=== PATIENT | male | born 1975 | race Caucasian/White ===

== ENCOUNTER 2018-04-15 13:06 | Emergency (ER) | payer OTHER ==
[2018-04-15] MEDS ORDERED: TORAdol 30 mg Injection IM ONE (13:40)
[2018-04-15] MEDS ORDERED: DECADRON 10MG INJ. IM ONE (13:40)
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
[2018-04-15] MEDS ORDERED: DECADRON 10MG INJ. ONE (13:56)
[2018-04-15] MEDS ORDERED: TORAdol 30 mg Injection ONE (13:56)
--- NOTE | 2018-04-15 14:15 | XRAY ---
Indication: Pain following 3 feet fall. Comparison: None AP pelvis and 2 views of the right hip demonstrates lower lumbar degenerative changes reported separately. No other bony, articular, or soft tissue abnormalities.
--- NOTE | 2018-04-15 14:18 | XRAY ---
Indication: Pain following 3 feet fall. Comparison: None 3 views of the lumbar spine demonstrates 5 lumbar vertebral segments in normal alignment with minimal multilevel endplate spurring, L4-S1 disc space narrowing, and L5-S1 degenerative facet arthropathy right greater than left. No other bony, articular, or soft tissue abnormalities.
[2018-04-15 14:38] VITALS: BP 105/75; PULSE 75; O2SAT 97
== END 2018-04-15 14:56 | disposition home or self-care (01) ==
LOC: ED 13:06
DX: M54.5 Low back pain (principal); M25.551 Pain in right hip; W11.XXXA Fall on and from ladder, initial encounter
CPT/HCPCS: 72100; 73502; 96372; 99284; J1100; J1885

== ENCOUNTER 2019-06-03 13:02 | Emergency (ER) | payer OTHER ==
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
[2019-06-03 13:23] VITALS: BP 109/58; PULSE 72; O2SAT 100
[2019-06-03] MEDS ORDERED: PERCOCET TABLET 5/325MG PO STA (13:47)
[2019-06-03] MEDS ORDERED: PERCOCET TABLET 5/325MG ONE (13:57)
--- NOTE | 2019-06-03 14:13 | XRAY ---
Indication: 4th/5th metacarpal pain and swelling following injury. Comparison: None 3 views of the right hand demonstrates minimally angulated 4th metacarpal head fracture with soft tissue swelling. No other bony, articular, or soft tissue abnormalities.
--- NOTE | 2019-06-03 14:27 | XRAY ---
Indication: Pain following injury. Comparison: None 2 views of the right forearm demonstrates tiny distal radius bone island and 4th metacarpal fracture reported separately. No other bony, articular, or soft tissue abnormalities.
--- NOTE | 2019-06-03 14:42 | XRAY ---
Indication: Pain following injury. Comparison: None 3 views of the right wrist demonstrates tiny distal radius bone island. No other bony, articular, or soft tissue abnormalities.
== END 2019-06-03 14:57 | disposition home or self-care (01) ==
LOC: ED 13:02
DX: S62.304A Unspecified fracture of fourth metacarpal bone, right hand, initial encounter for closed fracture (principal); M79.641 Pain in right hand; W22.09XA Striking against other stationary object, initial encounter; Y93.89 Activity, other specified
CPT/HCPCS: 29126; 73090; 73110; 73130; 99284; A9270-GY

== ENCOUNTER 2021-07-21 23:42 | Emergency (ER) | payer OTHER | END 2021-07-21 23:50 | disposition left against medical advice (07) | LOC: ED 23:42 | DX: Z53.21 Procedure and treatment not carried out due to patient leaving prior to being seen by health care provider (principal) ==

== ENCOUNTER 2022-01-30 12:23 | Emergency (ER) | payer OTHER ==
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
[2022-01-30] MEDS ORDERED: Zofran 4 MG/2 ML VIAL IV ONE (13:03)
[2022-01-30] MEDS ORDERED: MORPHINE SULFATE 4 MG INJ IV ONE (13:03)
[2022-01-30] MEDS ORDERED: MORPHINE SULFATE 4 MG INJ ONE (13:09)
[2022-01-30] MEDS ORDERED: Zofran 4 MG/2 ML VIAL ONE (13:09)
[2022-01-30 13:14] LABS: ALBUMIN 4.7 g/dL (3.5-5.0); ALKALINE PHOSPHATASE 54 U/L (38-126); AMYLASE 43 U/L (30-110); ANION GAP 15.7 MEQ/L (5-15); BLOOD UREA NITROGEN 9 mg/dL (9-20); CHLORIDE 106 mmol/L (98-107); Calcium 9.6 mg/dL (8.4-10.2); Carbon Dioxide 21 mmol/L (22-30); Creatinine 1 0.89 mg/dL (0.66-1.25); EST GLOMERULAR FILTRATION RATE > 60.0 ML/MIN; Glucose 88 mg/dL (74-106); LIPASE 52 U/L (23-300); Potassium 4.4 mmol/L (3.5-5.1); SGOT/AST 30 U/L (17-59); SGPT/ALT 29 U/L (0-50); SODIUM 139 mmol/L (137-145); Total Protein 7.5 g/dL (6.3-8.2)
[2022-01-30 13:28] LABS: Hematocrit 31.5 % (42-50); Hemoglobin 9.1 gm/dl (12.5-18.0); Mean Cell Volume 67.7 fl (78-100); Mean Corpuscular Hemoglobin 19.6 pg (26-32); Mean Corpuscular Hgb Concent. 28.9 g/dl (32-36); Mean Platelet Volume 10.4 fl (7.5-11.0); Platelet Count 211 K/mm3 (150-450); Red Blood Count 4.65 M/mm3 (4.1-5.6); Red Cell Distribution Width 18.9 % (11.5-14.0)
--- NOTE | 2022-01-30 13:39 | XRAY ---
Indication: Abdomen pain and rectal bleeding. Multiple contiguous images obtained through the abdomen and pelvis without contrast Comparison: None Lung bases demonstrates bibasilar dependent atelectasis and small right lower lobe calcified granuloma. Heart not enlarged. Noncontrasted stomach and bowel loops appear nonobstructed with normal air-filled appendix. Minimal distal descending and sigmoid colonic diverticulosis without diverticulitis. No free fluid/air. Remaining liver, gallbladder, pancreas, spleen, adrenal glands, kidneys, ureters, bladder, and aorta appear unremarkable for noncontrast exam. Osseous structures intact with minimal/mild lower lumbar degenerative changes. No ventral or inguinal hernias. Impression: Minimal colonic diverticulosis. Remaining CT abdomen/pelvis without contrast exam is negative.
[2022-01-30 13:52] LABS: Mucus SLIGHT /HPF (NEGATIVE)
[2022-01-30 13:58] LABS: Appearance CLEAR (CLEAR); Specific Gravity >=1.030 (1.005-1.025)
[2022-01-30 13:59] LABS: Bacteria NONE SEEN /HPF (NEGATIVE); Bilirubin SMALL (NEGATIVE); Blood NEGATIVE Ery/ul (0-5); Epithelial Cells OCCASIONAL /HPF (FEW); Glucose NEGATIVE (NEGATIVE); Ketones NEGATIVE (NEGATIVE); Leukocyte Esterase NEGATIVE (NEGATIVE); Nitrite NEGATIVE (NEGATIVE); Ph 6.5 (5-6); Protein,Urine Dip NEGATIVE (Negative); RBC NONE SEEN /HPF (0-2); Urobilinogen 1 mg/dL (0-1)
[2022-01-30 14:00] LABS: ADD URINE CULTURE? NO (NO)
[2022-01-30 14:36] VITALS: BP 116/74; PULSE 64; O2SAT 99
[2022-01-30 19:46] LABS: BAND 2 % (0.0-2.0); Eosinophil 3 % (0.00-3.0); Hypochromia 2+; Lymphocytes 7 % (24-44); Monocyte 6 % (0.0-12.0); Neutrophils 82 % (36.-66.); Platelet Estimate NORMAL (NORMAL); Total Cells Counted 100
[2022-01-30 19:52] LABS: Microcytosis 1+
== END 2022-01-30 15:00 | disposition home or self-care (01) ==
LOC: ED 12:23
DX: K62.5 Hemorrhage of anus and rectum (principal); R10.31 Right lower quadrant pain; R10.32 Left lower quadrant pain; K59.00 Constipation, unspecified; R11.0 Nausea; K57.31 Diverticulosis of large intestine without perforation or abscess with bleeding; Z72.0 Tobacco use
CPT/HCPCS: 36000; 36415; 74176; 80053; 81001; 82150; 83605; 83690; 85025; 96374; 96375; 99284; J2270; J2405

== ENCOUNTER 2023-09-03 15:53 | Observation (INO) | payer SELFPAY ==
[2023-09-03 16:44] LABS: ALBUMIN 3.1 g/dL (3.5-5.0); ANION GAP 11.6 MEQ/L (5-15); BILIRUBIN,TOTAL 0.2 mg/dL (0.2-1.3); Calcium 8.4 mg/dL (8.4-10.2); Creatinine 1 0.69 mg/dL (0.66-1.25); EST GLOMERULAR FILTRATION RATE 113.5 ML/MIN; Potassium 3.5 mmol/L (3.5-5.1); Total Protein 5.5 g/dL (6.3-8.2)
[2023-09-03 16:46] LABS: Absolute Neutrophil Ct (ANC) 4.11 x10^3/uL (1.4-6.9); BASOPHIL % 0.7 % (0.0-0.4); Basophil (Absolute #) 0.05 x10^3/uL (0-0.4); Eosinophil % 4.6 % (0.00-5.0); Eosinophil (Absolute #) 0.31 x10^3/uL (0-0.5); Hematocrit 21.2 % (42-50); IMMATURE GRAN # 0.02 x10^3u/L (0.00-0.03); IMMATURE GRAN % 0.3 % (0.00-0.4); Lymphocyte (Absolute #) 1.44 x10^3/uL (1.0-4.6); Lymphocytes % 21.5 % (24.0-44.0); Mean Cell Volume 75.4 fL (78-100); Mean Corpuscular Hemoglobin 22.1 pg (26-32); Mean Corpuscular Hgb Concent. 29.2 g/dL (32-36); Mean Platelet Volume 9.9 fL (7.5-11.0); Monocyte (Absolute #) 0.78 x10^3/uL (0.0-1.3); Monocytes % 11.6 % (0.0-12.0); Neutrophil % 61.3 % (36.0-66.0); Platelet Count 271 x10^3/uL (150-450); Red Blood Count 2.81 x10^6/uL (4.1-5.6); Red Cell Distribution Width 20.5 % (11.5-14.0); White Blood Count 6.7 x10^3/uL (4.0-10.5)
[2023-09-03 16:55] LABS: Hemoglobin 6.2 g/dL (12.5-18.0)
[2023-09-03 18:08] LABS: ABO TYPING A; Antibody Screen NEGATIVE (NEGATIVE); RH TYPING NEGATIVE
[2023-09-03 19:09] LABS: INFLUENZA A NEGATIVE (NEGATIVE); INFLUENZA B NEGATIVE (NEGATIVE); RESPIRATORY SYNCTIAL VIRUS NEGATIVE (NEGATIVE); SARS-CoV-2 Xpert Express NEGATIVE (NEGATIVE)
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
[2023-09-03 20:20] LABS: CROSS MATCH (PRBC) COMPATIBLE (COMPATIBLE)
[2023-09-03 20:21] LABS: CROSS MATCH (PRBC) COMPATIBLE (COMPATIBLE)
[2023-09-03] MEDS ORDERED: Sodium Chloride 0.9% 500 ML 500 ML IV SCH (20:30)
[2023-09-03 22:47] VITALS: O2SAT 98
[2023-09-03] MEDS ORDERED: Sodium Chloride 0.9% 1000 ML 1,000 ML ONE (23:43)
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
[2023-09-04] MEDS ORDERED: Zofran 4 MG/2 ML VIAL IV PRN (00:40)
[2023-09-04 05:12] VITALS: BP 96/57; PULSE 56; RESP 17; TEMP 96.9
[2023-09-04 05:51] LABS: Hematocrit 26.3 % (42-50); Hemoglobin 7.9 g/dL (12.5-18.0); Mean Corpuscular Hemoglobin 22.8 pg (26-32); Mean Platelet Volume 10.2 fL (7.5-11.0); Platelet Count 268 x10^3/uL (150-450); Red Blood Count 3.46 x10^6/uL (4.1-5.6); Red Cell Distribution Width 19.6 % (11.5-14.0); White Blood Count 7.9 x10^3/uL (4.0-10.5)
[2023-09-04 06:10] LABS: ALBUMIN 3.1 g/dL (3.5-5.0); ANION GAP 11.1 MEQ/L (5-15); BILIRUBIN,TOTAL 0.5 mg/dL (0.2-1.3); Calcium 8.4 mg/dL (8.4-10.2); Creatinine 1 0.69 mg/dL (0.66-1.25); EST GLOMERULAR FILTRATION RATE 113.5 ML/MIN; Potassium 4.1 mmol/L (3.5-5.1); Total Protein 5.6 g/dL (6.3-8.2)
--- NOTE | 2023-09-04 13:13 | PCM.DS ---
Discharge Summary Date of Admission: 09/03/23 22:57 Date of Discharge: 09/04/23 Admitting Physician: JENELLE RODRIGUEZ MD Primary Care Provider: JUDITH WELLS Allergies Allergies diphenhydramine [From Benadryl] Allergy (Verified 09/03/23 16:02) Hospital Summary - Hospital Course Hospital Course: 09/03/23 Mr. Rivas is a 48 year old male with a past medical history significant for hypertension, hyperlipidemia, and previous episodes of anemia and abdominal pain status post work up in the past including two indeterminate colonoscopies. He reports that he ate the wrong thing and then suddenly developed BRBPR that could not be controlled, leading to severe weakness. He has lost approximately 100lbs over the past couple years. He denies any chest pain or shortness of breath. He denies any nausea, vomiting or diarrhea. He was found to have a hemoglobin of 6.2 so he was recommended for admission. 09/04/23 Pt left last night AMA. Pt was not seen by this provider. - Vitals & Intake/Output Vital Signs: Vital Signs Temperature 96.9 F 09/04/23 04:00 Pulse Rate 56 L 09/04/23 04:00 Respiratory Rate 17 09/04/23 04:00 Blood Pressure 96/57 09/04/23 04:00 O2 Sat by Pulse Oximetry 98 09/04/23 04:00 Intake & Output: Intake & Output 09/02/23 09/03/23 09/04/23 09/05/23 11:59 11:59 11:59 11:59 Intake Total 300 Balance 300 Weight 68.2 kg - Lab Result Diagrams: 09/04/23 05:04 09/04/23 05:04 Lab Results-Last 24 Hrs: Lab Results-Last 24 Hours 09/03/23 09/03/23 09/03/23 Range/Units 16:15 16:15 16:15 WBC 6.7 (4.0-10.5) x10^3/uL RBC 2.81 L (4.1-5.6) x10^6/uL Hgb 6.2 L* (12.5-18.0) g/dL Hct 21.2 L (42-50) % MCV 75.4 L (78-100) fL MCH 22.1 L (26-32) pg MCHC 29.2 L (32-36) g/dL RDW 20.5 H (11.5-14.0) % Plt Count 271 (150-450) x10^3/uL MPV 9.9 (7.5-11.0) fL Gran % 61.3 (36.0-66.0) % Immature Gran % (Auto) 0.3 (0.00-0.4) % Nucleat RBC Rel Count 0.0 (0.00-0.1) % Eos # (Auto) 0.31 (0-0.5) x10^3/uL Immature Gran # (Auto) 0.02 (0.00-0.03) x10^3u/L Absolute Lymphs (auto) 1.44 (1.0-4.6) x10^3/uL Absolute Monos (auto) 0.78 (0.0-1.3) x10^3/uL Absolute Nucleated RBC 0.00 (0.00-0.01) x10^3u/L Lymphocytes % 21.5 L (24.0-44.0) % Monocytes % 11.6 (0.0-12.0) % Eosinophils % 4.6 (0.00-5.0) % Basophils % 0.7 (0.0-0.4) % Absolute Granulocytes 4.11 (1.4-6.9) x10^3/uL Basophils # 0.05 (0-0.4) x10^3/uL Sodium 140 (137-145) mmol/L Potassium 3.5 (3.5-5.1) mmol/L Chloride 108 H (98-107) mmol/L Carbon Dioxide 24 (22-30) mmol/L Anion Gap 11.6 (5-15) MEQ/L BUN 10 (9-20) mg/dL Creatinine 0.69 (0.66-1.25) mg/dL Estimated GFR 113.5 ML/MIN Glucose 69 L (74-106) mg/dL POC Glucometer (74 to 106) mg/dL Calcium 8.4 (8.4-10.2) mg/dL Total Bilirubin 0.20 (0.2-1.3) mg/dL AST 20 (17-59) U/L ALT 24 (0-50) U/L Alkaline Phosphatase 48 (38-126) U/L Troponin I < 0.012 (0.000-0.034) ng/mL Serum Total Protein 5.5 L (6.3-8.2) g/dL Albumin 3.1 L (3.5-5.0) g/dL Influenza Type A Ag (NEGATIVE) Influenza Type B Ag (NEGATIVE) RSV (PCR) (NEGATIVE) SARS-CoV-2 (PCR) (NEGATIVE) ABO Group Rh Factor Antibody Screen (NEGATIVE) Crossmatch (COMPATIBLE) 09/03/23 09/03/23 09/03/23 Range/Units 17:10 18:20 20:14 WBC (4.0-10.5) x10^3/uL RBC (4.1-5.6) x10^6/uL Hgb (12.5-18.0) g/dL Hct (42-50) % MCV (78-100) fL MCH (26-32) pg MCHC (32-36) g/dL RDW (11.5-14.0) % Plt Count (150-450) x10^3/uL MPV (7.5-11.0) fL Gran % (36.0-66.0) % Immature Gran % (Auto) (0.00-0.4) % Nucleat RBC Rel Count (0.00-0.1) % Eos # (Auto) (0-0.5) x10^3/uL Immature Gran # (Auto) (0.00-0.03) x10^3u/L Absolute Lymphs (auto) (1.0-4.6) x10^3/uL Absolute Monos (auto) (0.0-1.3) x10^3/uL Absolute Nucleated RBC (0.00-0.01) x10^3u/L Lymphocytes % (24.0-44.0) % Monocytes % (0.0-12.0) % Eosinophils % (0.00-5.0) % Basophils % (0.0-0.4) % Absolute Granulocytes (1.4-6.9) x10^3/uL Basophils # (0-0.4) x10^3/uL Sodium (137-145) mmol/L Potassium (3.5-5.1) mmol/L Chloride (98-107) mmol/L Carbon Dioxide (22-30) mmol/L Anion Gap (5-15) MEQ/L BUN (9-20) mg/dL Creatinine (0.66-1.25) mg/dL Estimated GFR ML/MIN Glucose (74-106) mg/dL POC Glucometer (74 to 106) mg/dL Calcium (8.4-10.2) mg/dL Total Bilirubin (0.2-1.3) mg/dL AST (17-59) U/L ALT (0-50) U/L Alkaline Phosphatase (38-126) U/L Troponin I < 0.012 (0.000-0.034) ng/mL Serum Total Protein (6.3-8.2) g/dL Albumin (3.5-5.0) g/dL Influenza Type A Ag NEGATIVE (NEGATIVE) Influenza Type B Ag NEGATIVE (NEGATIVE) RSV (PCR) NEGATIVE (NEGATIVE) SARS-CoV-2 (PCR) NEGATIVE (NEGATIVE) ABO Group A Rh Factor NEGATIVE Antibody Screen NEGATIVE (NEGATIVE) Crossmatch COMPATIBLE (COMPATIBLE) 09/03/23 09/03/23 09/04/23 Range/Units 23:46 Unknown 05:04 WBC (4.0-10.5) x10^3/uL RBC (4.1-5.6) x10^6/uL Hgb (12.5-18.0) g/dL Hct (42-50) % MCV (78-100) fL MCH (26-32) pg MCHC (32-36) g/dL RDW (11.5-14.0) % Plt Count (150-450) x10^3/uL MPV (7.5-11.0) fL Gran % (36.0-66.0) % Immature Gran % (Auto) (0.00-0.4) % Nucleat RBC Rel Count (0.00-0.1) % Eos # (Auto) (0-0.5) x10^3/uL Immature Gran # (Auto) (0.00-0.03) x10^3u/L Absolute Lymphs (auto) (1.0-4.6) x10^3/uL Absolute Monos (auto) (0.0-1.3) x10^3/uL Absolute Nucleated RBC (0.00-0.01) x10^3u/L Lymphocytes % (24.0-44.0) % Monocytes % (0.0-12.0) % Eosinophils % (0.00-5.0) % Basophils % (0.0-0.4) % Absolute Granulocytes (1.4-6.9) x10^3/uL Basophils # (0-0.4) x10^3/uL Sodium (137-145) mmol/L Potassium (3.5-5.1) mmol/L Chloride (98-107) mmol/L Carbon Dioxide (22-30) mmol/L Anion Gap (5-15) MEQ/L BUN (9-20) mg/dL Creatinine (0.66-1.25) mg/dL Estimated GFR ML/MIN Glucose (74-106) mg/dL POC Glucometer 126 H (74 to 106) mg/dL Calcium (8.4-10.2) mg/dL Total Bilirubin (0.2-1.3) mg/dL AST (17-59) U/L ALT (0-50) U/L Alkaline Phosphatase (38-126) U/L Troponin I < 0.012 (0.000-0.034) ng/mL Serum Total Protein (6.3-8.2) g/dL Albumin (3.5-5.0) g/dL Influenza Type A Ag (NEGATIVE) Influenza Type B Ag (NEGATIVE) RSV (PCR) (NEGATIVE) SARS-CoV-2 (PCR) (NEGATIVE) ABO Group Rh Factor Antibody Screen (NEGATIVE) Crossmatch COMPATIBLE (COMPATIBLE) 09/04/23 09/04/23 Range/Units 05:04 05:04 WBC 7.9 (4.0-10.5) x10^3/uL RBC 3.46 L (4.1-5.6) x10^6/uL Hgb 7.9 L D (12.5-18.0) g/dL Hct 26.3 L (42-50) % MCV 76.0 L (78-100) fL MCH 22.8 L (26-32) pg MCHC 30.0 L (32-36) g/dL RDW 19.6 H (11.5-14.0) % Plt Count 268 (150-450) x10^3/uL MPV 10.2 (7.5-11.0) fL Gran % (36.0-66.0) % Immature Gran % (Auto) (0.00-0.4) % Nucleat RBC Rel Count (0.00-0.1) % Eos # (Auto) (0-0.5) x10^3/uL Immature Gran # (Auto) (0.00-0.03) x10^3u/L Absolute Lymphs (auto) (1.0-4.6) x10^3/uL Absolute Monos (auto) (0.0-1.3) x10^3/uL Absolute Nucleated RBC (0.00-0.01) x10^3u/L Lymphocytes % (24.0-44.0) % Monocytes % (0.0-12.0) % Eosinophils % (0.00-5.0) % Basophils % (0.0-0.4) % Absolute Granulocytes (1.4-6.9) x10^3/uL Basophils # (0-0.4) x10^3/uL Sodium 138 (137-145) mmol/L Potassium 4.1 (3.5-5.1) mmol/L Chloride 108 H (98-107) mmol/L Carbon Dioxide 23 (22-30) mmol/L Anion Gap 11.1 (5-15) MEQ/L BUN 10 (9-20) mg/dL Creatinine 0.69 (0.66-1.25) mg/dL Estimated GFR 113.5 ML/MIN Glucose 97 (74-106) mg/dL POC Glucometer (74 to 106) mg/dL Calcium 8.4 (8.4-10.2) mg/dL Total Bilirubin 0.50 (0.2-1.3) mg/dL AST 22 (17-59) U/L ALT 22 (0-50) U/L Alkaline Phosphatase 48 (38-126) U/L Troponin I (0.000-0.034) ng/mL Serum Total Protein 5.6 L (6.3-8.2) g/dL Albumin 3.1 L (3.5-5.0) g/dL Influenza Type A Ag (NEGATIVE) Influenza Type B Ag (NEGATIVE) RSV (PCR) (NEGATIVE) SARS-CoV-2 (PCR) (NEGATIVE) ABO Group Rh Factor Antibody Screen (NEGATIVE) Crossmatch (COMPATIBLE) Final Diagnosis/Problem List - Final Discharge Diagnosis/Problem (1) Symptomatic anemia Status: Acute Assessment & Plan: 1. Anemia likely from GI bleed though he has had two colonoscopies in the past that were indeterminate - suspect he has underlying malignancy given significant weight loss associated with GI bleed Will transfuse 2 units pRBC Trend H/H Defer blood thinners Likely needs surgery or GI eval Ambulation for DVT prophylaxis Code(s): D64.9 - ANEMIA, UNSPECIFIED (2) Nicotine dependence Status: Acute Assessment & Plan: - according to staff pt left as he was not able to go out to smoke last night. Code(s): F17.200 - NICOTINE DEPENDENCE, UNSPECIFIED, UNCOMPLICATED - Discharge Discharge Date: 09/04/23 Condition: Fair Prescriptions: Continue Ferrous Sulfate 325 mg [Feosol 325 mg] 1 tab PO DAILY Follow up with: ARVIND DE LEON FNP [Primary Care Provider] -
== END 2023-09-04 07:05 | disposition left against medical advice (07) ==
LOC: ED 15:53 → MED SURG 22:57
PROVIDERS: ADMIT Internal Medicine Nephrology; ATTEND Internal Medicine Nephrology
DX: D64.9 Anemia, unspecified (principal); I10 Essential (primary) hypertension; E78.5 Hyperlipidemia, unspecified; F17.200 Nicotine dependence, unspecified, uncomplicated; R07.9 Chest pain, unspecified; Z79.899 Other long term (current) drug therapy; Z20.828 Contact with and (suspected) exposure to other viral communicable diseases
CPT/HCPCS: 0241U; 36415; 36430; 80053; 82378; 82947; 84484; 85025; 85027; 86850; 86900; 86901; 86922; 93005; 93041; 94760; 99285; P9016; 93268; G0378

== ENCOUNTER 2023-10-02 00:02 | Emergency (ER) | payer OTHER ==
[2023-10-02 00:35] VITALS: RESP 18; TEMP 98; O2SAT 99
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
[2023-10-02 01:30] VITALS: BP 124/81; PULSE 66
== END 2023-10-02 01:44 | disposition home or self-care (01) ==
LOC: ED 00:02
DX: G24.9 Dystonia, unspecified (principal); Z63.0 Problems in relationship with spouse or partner; Z79.899 Other long term (current) drug therapy; Z28.310 Unvaccinated for COVID-19; Z72.0 Tobacco use
CPT/HCPCS: 99281

== ENCOUNTER 2023-11-13 23:06 | Observation (INO) | payer OTHER ==
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
[2023-11-13 23:38] LABS: Absolute Neutrophil Ct (ANC) 4.59 x10^3/uL (1.4-6.9); BASOPHIL % 0.8 % (0.0-0.4); Basophil (Absolute #) 0.05 x10^3/uL (0-0.4); Eosinophil % 1.1 % (0.00-5.0); Eosinophil (Absolute #) 0.07 x10^3/uL (0-0.5); Hematocrit 19.6 % (42-50); IMMATURE GRAN # 0.03 x10^3u/L (0.00-0.03); IMMATURE GRAN % 0.5 % (0.00-0.4); Lymphocyte (Absolute #) 1.07 x10^3/uL (1.0-4.6); Lymphocytes % 16.4 % (24.0-44.0); Mean Cell Volume 75.4 fL (78-100); Mean Corpuscular Hemoglobin 22.3 pg (26-32); Mean Corpuscular Hgb Concent. 29.6 g/dL (32-36); Mean Platelet Volume 9.1 fL (7.5-11.0); Monocytes % 10.8 % (0.0-12.0); Neutrophil % 70.4 % (36.0-66.0); Platelet Count 286 x10^3/uL (150-450); Red Cell Distribution Width 20.3 % (11.5-14.0); White Blood Count 6.5 x10^3/uL (4.0-10.5)
[2023-11-13 23:54] LABS: ALBUMIN 3.4 g/dL (3.5-5.0); ANION GAP 9.7 MEQ/L (5-15); BILIRUBIN,TOTAL 0.3 mg/dL (0.2-1.3); Calcium 8.7 mg/dL (8.4-10.2); Creatinine 1 0.95 mg/dL (0.66-1.25); EST GLOMERULAR FILTRATION RATE 98.1 ML/MIN; Potassium 3.5 mmol/L (3.5-5.1); Total Protein 5.8 g/dL (6.3-8.2)
[2023-11-13 23:56] LABS: Hemoglobin 5.8 g/dL (12.5-18.0)
[2023-11-14 00:15] LABS: Amphetamine,Urine NEGATIVE (NEGATIVE); Barbiturate,Urine NEGATIVE (NEGATIVE); Benzodiazepine,Urine NEGATIVE (NEGATIVE); Cocaine,Urine NEGATIVE (NEGATIVE); Methadone,Urine NEGATIVE (NEGATIVE); Opiate,Urine NEGATIVE (NEGATIVE); PCP,Urine NEGATIVE (NEGATIVE); THC,Urine POSITIVE (NEGATIVE)
[2023-11-14 00:31] LABS: INR 1.15 (0.8-3.0); PROTIME 12.4 SECONDS (9.4-12.5); PTT 21.7 SECONDS (25.1-36.5)
--- NOTE | 2023-11-14 00:57 | XRAY ---
CLINICAL HISTORY:GI Bleed COMPARISON:None. TECHNIQUE:Multiple axial sections of the abdomen and pelvis were acquired without intravenous contrast administration. Sagittal and coronal reformatted images were obtained. FINDINGS: Please note, lack of contrast limits the evaluation of organs, vascular structures, and lymph nodes. A 4 mm calcified nodule is seen in the right lower lobe. Otherwise, both lung bases are clear. Mildly enlarged liver showing increased attenuation suggestive of fatty infiltration. No focal mass is seen. No intrahepatic duct dilatation is noted. The gallbladder is optimally distended. No radiodense calculus. The unenhanced pancreas, spleen and both adrenal glands are normal. A tiny 2 mm calcific focus is seen in the spleen. Both kidneys are normal in size, location and axis. No hydronephrosis, cyst or calculus is noted. Urinary bladder is suboptimally distended and appears within normal limits. The prostate gland appears unremarkable. The stomach and distal esophagus appeared unremarkable. Small bowel loops are within normal limits. No acute bowel obstruction or ileus. Moderate colonic stool volume. Appendix is normal. No abnormal hypodensity is noted to suggest acute hemorrhage. No free fluid or free intraperitoneal air is seen. Multiple nonspecific subcentimeter mesenteric lymph nodes. No evidence of pathological enlargement. Multilevel moderate lumbar spondylosis. Bifid spine is noted at L5. Grade 1 retrolisthesis is seen at L4-L5 and L5-S1. There is anterior angulation of the tip of the coccyx, normal variant. IMPRESSION: No acute abdominopelvic abnormality with limitations of non-contrast CT study. Hepatic steatosis. A 4 mm right lower lobe calcified nodule. Moderate degenerative changes with retrolisthesis at L4-L5 and L5-S1. Electronically Signed by: Pat Mckeon MD. (11/14/2023 00:52:40 EST)
[2023-11-14 01:16] LABS: Iron 13 ug/dL (49-181); Iron Saturation 3 % (20-39); TIBC 412 ug/dL (261-497)
[2023-11-14 01:23] LABS: Appearance Clear (Clear); Bacteria None Seen /HPF (None Seen); Bilirubin Moderate (Negative); Blood Negative (Negative); Epithelial Cells None Seen /HPF (None Seen); Glucose, Urine Negative (Negative); Ketones Trace (Negative); Leukocyte Esterase Negative (Negative); Nitrite Negative (Negative); Ph 5.5 (4.6-8.0); Protein,Urine Dip Trace (Negative); RBC 0-2 /HPF (0-5); WBC 0-2 /HPF (0-5)
[2023-11-14] MEDS: Sodium Chloride 0.9% 1000 ML 1,000 ML IV SCH ×2 (01:36→05:28)
[2023-11-14 01:37] LABS: ADD URINE CULTURE? NO (NO)
[2023-11-14 01:37] LABS: INFLUENZA A NEGATIVE (NEGATIVE); INFLUENZA B NEGATIVE (NEGATIVE); RESPIRATORY SYNCTIAL VIRUS NEGATIVE (NEGATIVE); SARS-CoV-2 Xpert Express NEGATIVE (NEGATIVE)
[2023-11-14 01:58] LABS: Ferritin 5.25 ng/mL (17.9-464)
[2023-11-14 02:11] LABS: CROSS MATCH (PRBC) COMPATIBLE (COMPATIBLE)
[2023-11-14 02:36] LABS: ABO TYPING A; Antibody Screen NEGATIVE (NEGATIVE); RH TYPING NEGATIVE
[2023-11-14] MEDS ORDERED: FEVERALL 650 MG PR PRN (02:38)
[2023-11-14] MEDS ORDERED: Zofran 4 MG/2 ML VIAL IV PRN (02:38)
[2023-11-14] MEDS ORDERED: Zanaflex 4 MG PO PRN (02:47)
[2023-11-14] MEDS ORDERED: Nicoderm CQ 21 MG TOP SCH ×2 (03:00→22:00)
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
[2023-11-14 03:13] LABS: Folate (Folic Acid) 18.7 ng/mL (2.76 - >20)
[2023-11-14] MEDS ORDERED: TYLENOL 325 MG ONE (05:01)
[2023-11-14 06:49] VITALS: BP 103/51; PULSE 80; RESP 20; TEMP 98.9; O2SAT 99
[2023-11-14] MEDS ORDERED: MEDICATION INTERVENTION MC SCH (07:15)
[2023-11-14 09:18] LABS: Hematocrit 25.8 % (42-50); Mean Cell Volume 77.9 fL (78-100); Mean Corpuscular Hemoglobin 24.2 pg (26-32); Mean Platelet Volume 9.7 fL (7.5-11.0); Platelet Count 262 x10^3/uL (150-450); Red Blood Count 3.31 x10^6/uL (4.1-5.6); Red Cell Distribution Width 20.2 % (11.5-14.0); White Blood Count 6.4 x10^3/uL (4.0-10.5)
[2023-11-14 09:32] LABS: ALBUMIN 3.2 g/dL (3.5-5.0); ANION GAP 6.9 MEQ/L (5-15); BILIRUBIN,TOTAL 0.4 mg/dL (0.2-1.3); Calcium 8.2 mg/dL (8.4-10.2); Creatinine 1 0.83 mg/dL (0.66-1.25); EST GLOMERULAR FILTRATION RATE 107.3 ML/MIN; Potassium 3.8 mmol/L (3.5-5.1); Total Protein 5.5 g/dL (6.3-8.2)
[2023-11-14] MEDS ORDERED: Pepcid 20 MG PO SCH (10:00)
[2023-11-14] MEDS ORDERED: FERROUS BIS GLYCINATE CHELATE PO SCH (10:00)
--- NOTE | 2023-11-14 11:16 | PCM.DS ---
Discharge Summary Date of Admission: 11/14/23 01:48 Date of Discharge: 11/14/23 Admitting Physician: SANDRA LANDIN MD Consults: Consults on Case 11/14/23 02:42 Case Management SDOH DC Needs Assessment ROUTINE Primary Care Provider: NO FAMILY DOCTOR Allergies Allergies diphenhydramine [From Benadryl] Allergy (Severe, Verified 11/13/23 23:23) seizure Hospital Summary - Hospital Course Hospital Course: is a 48 year old male who was brought in under police custody for medical clearance but was noted to have significant recurrent anemia due rectal bleeding because of his known diagnosis of ulcerative colitis. The patient does not currently follow with a gastrenterologist and had been referred for a colonoscopy several months ago but was not able to complete this due to can cellation by the gastroenterology team, inability to reschedule, and difficulty with transportation coordination. The patient has recurrent episodes of significant rectal bleeding lasting days, and this has been the case for the past week. He has previously required transfusion (last was a few months ago). He denies any hematemesis. Transfusions were completed and hgb is now stable at 8.0. He feels much better and owuld like to f/u Op with GI. He would like to go to [place]. Will also make pt an appointment for f/u with PCP. Pt explained he would also like some medication for lesion on left lower circular region on chin and dry skin around mouth. He has been using OTC meds without relief for over 1 month. He reports the chin lesion is most likely from his cat. - Vitals & Intake/Output Vital Signs: Vital Signs Temperature 98.9 F 11/14/23 06:25 Pulse Rate 80 11/14/23 06:25 Respiratory Rate 20 11/14/23 06:25 Blood Pressure 103/51 11/14/23 06:25 O2 Sat by Pulse Oximetry 99 11/14/23 06:25 Intake & Output: Intake & Output 11/11/23 11/12/23 11/13/23 11/14/23 11:59 11:59 11:59 11:59 Intake Total 1893 Output Total 450 Balance 1443 Weight 63.3 kg - Lab Result Diagrams: 11/14/23 09:12 11/14/23 09:12 Lab Results-Last 24 Hrs: Lab Results-Last 24 Hours 11/13/23 11/13/23 11/13/23 Range/Units 00:35 00:35 23:30 WBC 6.5 (4.0-10.5) x10^3/uL RBC 2.60 L (4.1-5.6) x10^6/uL Hgb 5.8 L* (12.5-18.0) g/dL Hct 19.6 L (42-50) % MCV 75.4 L (78-100) fL MCH 22.3 L (26-32) pg MCHC 29.6 L (32-36) g/dL RDW 20.3 H (11.5-14.0) % Plt Count 286 (150-450) x10^3/uL MPV 9.1 (7.5-11.0) fL Gran % 70.4 H (36.0-66.0) % Immature Gran % (Auto) 0.5 H (0.00-0.4) % Nucleat RBC Rel Count 0.0 (0.00-0.1) % Eos # (Auto) 0.07 (0-0.5) x10^3/uL Immature Gran # (Auto) 0.03 (0.00-0.03) x10^3u/L Absolute Lymphs (auto) 1.07 (1.0-4.6) x10^3/uL Absolute Monos (auto) 0.70 (0.0-1.3) x10^3/uL Absolute Nucleated RBC 0.00 (0.00-0.01) x10^3u/L Lymphocytes % 16.4 L (24.0-44.0) % Monocytes % 10.8 (0.0-12.0) % Eosinophils % 1.1 (0.00-5.0) % Basophils % 0.8 (0.0-0.4) % Absolute Granulocytes 4.59 (1.4-6.9) x10^3/uL Basophils # 0.05 (0-0.4) x10^3/uL PT (9.4-12.5) SECONDS INR (0.8-3.0) APTT (25.1-36.5) SECONDS Sodium (137-145) mmol/L Potassium (3.5-5.1) mmol/L Chloride (98-107) mmol/L Carbon Dioxide (22-30) mmol/L Anion Gap (5-15) MEQ/L BUN (9-20) mg/dL Creatinine (0.66-1.25) mg/dL Estimated GFR ML/MIN Glucose (74-106) mg/dL Calcium (8.4-10.2) mg/dL Iron (49-181) ug/dL TIBC (261-497) ug/dL Iron Saturation (20-39) % Ferritin (17.9-464) ng/mL Total Bilirubin (0.2-1.3) mg/dL AST (17-59) U/L ALT (0-50) U/L Alkaline Phosphatase (38-126) U/L Serum Total Protein (6.3-8.2) g/dL Albumin (3.5-5.0) g/dL Amylase (30-110) U/L Lipase (23-300) U/L Vitamin B12 (239-931) pg/mL Folic Acid (2.76 - >20) ng/mL Urine Color (Yellow) Urine Appearance (Clear) Urine pH (4.6-8.0) Ur Specific [place] (1.005-1.030) Urine Protein (Negative) Urine Glucose (UA) (Negative) mg/dL Urine Ketones (Negative) Urine Blood (Negative) Urine Nitrite (Negative) Urine Bilirubin (Negative) Urine Urobilinogen (0.2) mg/dL Ur Leukocyte Esterase (Negative) U Hyaline Cast (Auto) (0-2) /LPF Urine Microscopic RBC (0-5) /HPF Urine Microscopic WBC (0-5) /HPF Ur Epithelial Cells (None Seen) /HPF Urine Bacteria (None Seen) /HPF Urine Culture Reflexed (NO) Urine Opiates Level (NEGATIVE) Ur Methadone (NEGATIVE) Urine Barbiturates (NEGATIVE) Ur Phencyclidine (PCP) (NEGATIVE) Urine Amphetamine (NEGATIVE) U Benzodiazepine Level (NEGATIVE) Urine Cocaine (NEGATIVE) Urine Marijuana (THC) (NEGATIVE) Influenza Type A Ag (NEGATIVE) Influenza Type B Ag (NEGATIVE) RSV (PCR) (NEGATIVE) SARS-CoV-2 (PCR) (NEGATIVE) ABO Group A Rh Factor NEGATIVE Antibody Screen NEGATIVE (NEGATIVE) Crossmatch COMPATIBLE (COMPATIBLE) 11/13/23 11/13/23 11/13/23 Range/Units 23:30 23:36 23:45 WBC (4.0-10.5) x10^3/uL RBC (4.1-5.6) x10^6/uL Hgb (12.5-18.0) g/dL Hct (42-50) % MCV (78-100) fL MCH (26-32) pg MCHC (32-36) g/dL RDW (11.5-14.0) % Plt Count (150-450) x10^3/uL MPV (7.5-11.0) fL Gran % (36.0-66.0) % Immature Gran % (Auto) (0.00-0.4) % Nucleat RBC Rel Count (0.00-0.1) % Eos # (Auto) (0-0.5) x10^3/uL Immature Gran # (Auto) (0.00-0.03) x10^3u/L Absolute Lymphs (auto) (1.0-4.6) x10^3/uL Absolute Monos (auto) (0.0-1.3) x10^3/uL Absolute Nucleated RBC (0.00-0.01) x10^3u/L Lymphocytes % (24.0-44.0) % Monocytes % (0.0-12.0) % Eosinophils % (0.00-5.0) % Basophils % (0.0-0.4) % Absolute Granulocytes (1.4-6.9) x10^3/uL Basophils # (0-0.4) x10^3/uL PT 12.4 (9.4-12.5) SECONDS INR 1.15 (0.8-3.0) APTT 21.7 L (25.1-36.5) SECONDS Sodium 134 L (137-145) mmol/L Potassium 3.5 (3.5-5.1) mmol/L Chloride 107 (98-107) mmol/L Carbon Dioxide 21 L (22-30) mmol/L Anion Gap 9.7 (5-15) MEQ/L BUN 11 (9-20) mg/dL Creatinine 0.95 (0.66-1.25) mg/dL Estimated GFR 98.1 ML/MIN Glucose 120 H (74-106) mg/dL Calcium 8.7 (8.4-10.2) mg/dL Iron (49-181) ug/dL TIBC (261-497) ug/dL Iron Saturation (20-39) % Ferritin (17.9-464) ng/mL Total Bilirubin 0.30 (0.2-1.3) mg/dL AST 22 (17-59) U/L ALT 21 (0-50) U/L Alkaline Phosphatase 47 (38-126) U/L Serum Total Protein 5.8 L (6.3-8.2) g/dL Albumin 3.4 L (3.5-5.0) g/dL Amylase 38 (30-110) U/L Lipase 53 (23-300) U/L Vitamin B12 (239-931) pg/mL Folic Acid (2.76 - >20) ng/mL Urine Color Dark Yellow (Yellow) Urine Appearance Clear (Clear) Urine pH 5.5 (4.6-8.0) Ur Specific [place] 1.020 (1.005-1.030) Urine Protein Trace A (Negative) Urine Glucose (UA) Negative (Negative) mg/dL Urine Ketones Trace A (Negative) Urine Blood Negative (Negative) Urine Nitrite Negative (Negative) Urine Bilirubin Moderate A (Negative) Urine Urobilinogen 1.0 A (0.2) mg/dL Ur Leukocyte Esterase Negative (Negative) U Hyaline Cast (Auto) 3-5 A (0-2) /LPF Urine Microscopic RBC 0-2 (0-5) /HPF Urine Microscopic WBC 0-2 (0-5) /HPF Ur Epithelial Cells None Seen (None Seen) /HPF Urine Bacteria None Seen (None Seen) /HPF Urine Culture Reflexed NO (NO) Urine Opiates Level (NEGATIVE) Ur Methadone (NEGATIVE) Urine Barbiturates (NEGATIVE) Ur Phencyclidine (PCP) (NEGATIVE) Urine Amphetamine (NEGATIVE) U Benzodiazepine Level (NEGATIVE) Urine Cocaine (NEGATIVE) Urine Marijuana (THC) (NEGATIVE) Influenza Type A Ag (NEGATIVE) Influenza Type B Ag (NEGATIVE) RSV (PCR) (NEGATIVE) SARS-CoV-2 (PCR) (NEGATIVE) ABO Group Rh Factor Antibody Screen (NEGATIVE) Crossmatch (COMPATIBLE) 11/13/23 11/14/23 11/14/23 Range/Units 23:45 00:35 00:35 WBC (4.0-10.5) x10^3/uL RBC (4.1-5.6) x10^6/uL Hgb (12.5-18.0) g/dL Hct (42-50) % MCV (78-100) fL MCH (26-32) pg MCHC (32-36) g/dL RDW (11.5-14.0) % Plt Count (150-450) x10^3/uL MPV (7.5-11.0) fL Gran % (36.0-66.0) % Immature Gran % (Auto) (0.00-0.4) % Nucleat RBC Rel Count (0.00-0.1) % Eos # (Auto) (0-0.5) x10^3/uL Immature Gran # (Auto) (0.00-0.03) x10^3u/L Absolute Lymphs (auto) (1.0-4.6) x10^3/uL Absolute Monos (auto) (0.0-1.3) x10^3/uL Absolute Nucleated RBC (0.00-0.01) x10^3u/L Lymphocytes % (24.0-44.0) % Monocytes % (0.0-12.0) % Eosinophils % (0.00-5.0) % Basophils % (0.0-0.4) % Absolute Granulocytes (1.4-6.9) x10^3/uL Basophils # (0-0.4) x10^3/uL PT (9.4-12.5) SECONDS INR (0.8-3.0) APTT (25.1-36.5) SECONDS Sodium (137-145) mmol/L Potassium (3.5-5.1) mmol/L Chloride (98-107) mmol/L Carbon Dioxide (22-30) mmol/L Anion Gap (5-15) MEQ/L BUN (9-20) mg/dL Creatinine (0.66-1.25) mg/dL Estimated GFR ML/MIN Glucose (74-106) mg/dL Calcium (8.4-10.2) mg/dL Iron (49-181) ug/dL TIBC (261-497) ug/dL Iron Saturation (20-39) % Ferritin 5.25 L (17.9-464) ng/mL Total Bilirubin (0.2-1.3) mg/dL AST (17-59) U/L ALT (0-50) U/L Alkaline Phosphatase (38-126) U/L Serum Total Protein (6.3-8.2) g/dL Albumin (3.5-5.0) g/dL Amylase (30-110) U/L Lipase (23-300) U/L Vitamin B12 578 (239-931) pg/mL Folic Acid 18.7 (2.76 - >20) ng/mL Urine Color (Yellow) Urine Appearance (Clear) Urine pH (4.6-8.0) Ur Specific [place] (1.005-1.030) Urine Protein (Negative) Urine Glucose (UA) (Negative) mg/dL Urine Ketones (Negative) Urine Blood (Negative) Urine Nitrite (Negative) Urine Bilirubin (Negative) Urine Urobilinogen (0.2) mg/dL Ur Leukocyte Esterase (Negative) U Hyaline Cast (Auto) (0-2) /LPF Urine Microscopic RBC (0-5) /HPF Urine Microscopic WBC (0-5) /HPF Ur Epithelial Cells (None Seen) /HPF Urine Bacteria (None Seen) /HPF Urine Culture Reflexed (NO) Urine Opiates Level NEGATIVE (NEGATIVE) Ur Methadone NEGATIVE (NEGATIVE) Urine Barbiturates NEGATIVE (NEGATIVE) Ur Phencyclidine (PCP) NEGATIVE (NEGATIVE) Urine Amphetamine NEGATIVE (NEGATIVE) U Benzodiazepine Level NEGATIVE (NEGATIVE) Urine Cocaine NEGATIVE (NEGATIVE) Urine Marijuana (THC) POSITIVE A (NEGATIVE) Influenza Type A Ag NEGATIVE (NEGATIVE) Influenza Type B Ag NEGATIVE (NEGATIVE) RSV (PCR) NEGATIVE (NEGATIVE) SARS-CoV-2 (PCR) NEGATIVE (NEGATIVE) ABO Group Rh Factor Antibody Screen (NEGATIVE) Crossmatch (COMPATIBLE) 11/14/23 11/14/23 11/14/23 Range/Units 00:35 00:35 09:12 WBC 6.4 (4.0-10.5) x10^3/uL RBC 3.31 L (4.1-5.6) x10^6/uL Hgb 8.0 L D (12.5-18.0) g/dL Hct 25.8 L (42-50) % MCV 77.9 L (78-100) fL MCH 24.2 L (26-32) pg MCHC 31.0 L (32-36) g/dL RDW 20.2 H (11.5-14.0) % Plt Count 262 (150-450) x10^3/uL MPV 9.7 (7.5-11.0) fL Gran % (36.0-66.0) % Immature Gran % (Auto) (0.00-0.4) % Nucleat RBC Rel Count (0.00-0.1) % Eos # (Auto) (0-0.5) x10^3/uL Immature Gran # (Auto) (0.00-0.03) x10^3u/L Absolute Lymphs (auto) (1.0-4.6) x10^3/uL Absolute Monos (auto) (0.0-1.3) x10^3/uL Absolute Nucleated RBC (0.00-0.01) x10^3u/L Lymphocytes % (24.0-44.0) % Monocytes % (0.0-12.0) % Eosinophils % (0.00-5.0) % Basophils % (0.0-0.4) % Absolute Granulocytes (1.4-6.9) x10^3/uL Basophils # (0-0.4) x10^3/uL PT (9.4-12.5) SECONDS INR (0.8-3.0) APTT (25.1-36.5) SECONDS Sodium (137-145) mmol/L Potassium (3.5-5.1) mmol/L Chloride (98-107) mmol/L Carbon Dioxide (22-30) mmol/L Anion Gap (5-15) MEQ/L BUN (9-20) mg/dL Creatinine (0.66-1.25) mg/dL Estimated GFR ML/MIN Glucose (74-106) mg/dL Calcium (8.4-10.2) mg/dL Iron 13 L (49-181) ug/dL TIBC 412 (261-497) ug/dL Iron Saturation 3 L (20-39) % Ferritin (17.9-464) ng/mL Total Bilirubin (0.2-1.3) mg/dL AST (17-59) U/L ALT (0-50) U/L Alkaline Phosphatase (38-126) U/L Serum Total Protein (6.3-8.2) g/dL Albumin (3.5-5.0) g/dL Amylase (30-110) U/L Lipase (23-300) U/L Vitamin B12 (239-931) pg/mL Folic Acid (2.76 - >20) ng/mL Urine Color (Yellow) Urine Appearance (Clear) Urine pH (4.6-8.0) Ur Specific [place] (1.005-1.030) Urine Protein (Negative) Urine Glucose (UA) (Negative) mg/dL Urine Ketones (Negative) Urine Blood (Negative) Urine Nitrite (Negative) Urine Bilirubin (Negative) Urine Urobilinogen (0.2) mg/dL Ur Leukocyte Esterase (Negative) U Hyaline Cast (Auto) (0-2) /LPF Urine Microscopic RBC (0-5) /HPF Urine Microscopic WBC (0-5) /HPF Ur Epithelial Cells (None Seen) /HPF Urine Bacteria (None Seen) /HPF Urine Culture Reflexed (NO) Urine Opiates Level (NEGATIVE) Ur Methadone (NEGATIVE) Urine Barbiturates (NEGATIVE) Ur Phencyclidine (PCP) (NEGATIVE) Urine Amphetamine (NEGATIVE) U Benzodiazepine Level (NEGATIVE) Urine Cocaine (NEGATIVE) Urine Marijuana (THC) (NEGATIVE) Influenza Type A Ag (NEGATIVE) Influenza Type B Ag (NEGATIVE) RSV (PCR) (NEGATIVE) SARS-CoV-2 (PCR) (NEGATIVE) ABO Group Rh Factor Antibody Screen (NEGATIVE) Crossmatch COMPATIBLE (COMPATIBLE) 11/14/23 Range/Units 09:12 WBC (4.0-10.5) x10^3/uL RBC (4.1-5.6) x10^6/uL Hgb (12.5-18.0) g/dL Hct (42-50) % MCV (78-100) fL MCH (26-32) pg MCHC (32-36) g/dL RDW (11.5-14.0) % Plt Count (150-450) x10^3/uL MPV (7.5-11.0) fL Gran % (36.0-66.0) % Immature Gran % (Auto) (0.00-0.4) % Nucleat RBC Rel Count (0.00-0.1) % Eos # (Auto) (0-0.5) x10^3/uL Immature Gran # (Auto) (0.00-0.03) x10^3u/L Absolute Lymphs (auto) (1.0-4.6) x10^3/uL Absolute Monos (auto) (0.0-1.3) x10^3/uL Absolute Nucleated RBC (0.00-0.01) x10^3u/L Lymphocytes % (24.0-44.0) % Monocytes % (0.0-12.0) % Eosinophils % (0.00-5.0) % Basophils % (0.0-0.4) % Absolute Granulocytes (1.4-6.9) x10^3/uL Basophils # (0-0.4) x10^3/uL PT (9.4-12.5) SECONDS INR (0.8-3.0) APTT (25.1-36.5) SECONDS Sodium 136 L (137-145) mmol/L Potassium 3.8 (3.5-5.1) mmol/L Chloride 108 H (98-107) mmol/L Carbon Dioxide 25 (22-30) mmol/L Anion Gap 6.9 (5-15) MEQ/L BUN 14 (9-20) mg/dL Creatinine 0.83 (0.66-1.25) mg/dL Estimated GFR 107.3 ML/MIN Glucose 121 H (74-106) mg/dL Calcium 8.2 L (8.4-10.2) mg/dL Iron (49-181) ug/dL TIBC (261-497) ug/dL Iron Saturation (20-39) % Ferritin (17.9-464) ng/mL Total Bilirubin 0.40 (0.2-1.3) mg/dL AST 21 (17-59) U/L ALT 20 (0-50) U/L Alkaline Phosphatase 47 (38-126) U/L Serum Total Protein 5.5 L (6.3-8.2) g/dL Albumin 3.2 L (3.5-5.0) g/dL Amylase (30-110) U/L Lipase (23-300) U/L Vitamin B12 (239-931) pg/mL Folic Acid (2.76 - >20) ng/mL Urine Color (Yellow) Urine Appearance (Clear) Urine pH (4.6-8.0) Ur Specific [place] (1.005-1.030) Urine Protein (Negative) Urine Glucose (UA) (Negative) mg/dL Urine Ketones (Negative) Urine Blood (Negative) Urine Nitrite (Negative) Urine Bilirubin (Negative) Urine Urobilinogen (0.2) mg/dL Ur Leukocyte Esterase (Negative) U Hyaline Cast (Auto) (0-2) /LPF Urine Microscopic RBC (0-5) /HPF Urine Microscopic WBC (0-5) /HPF Ur Epithelial Cells (None Seen) /HPF Urine Bacteria (None Seen) /HPF Urine Culture Reflexed (NO) Urine Opiates Level (NEGATIVE) Ur Methadone (NEGATIVE) Urine Barbiturates (NEGATIVE) Ur Phencyclidine (PCP) (NEGATIVE) Urine Amphetamine (NEGATIVE) U Benzodiazepine Level (NEGATIVE) Urine Cocaine (NEGATIVE) Urine Marijuana (THC) (NEGATIVE) Influenza Type A Ag (NEGATIVE) Influenza Type B Ag (NEGATIVE) RSV (PCR) (NEGATIVE) SARS-CoV-2 (PCR) (NEGATIVE) ABO Group Rh Factor Antibody Screen (NEGATIVE) Crossmatch (COMPATIBLE) - Radiology Exams Ordered Rad Exams-Entire Visit: Radiology Procedures Category Date Time Status ABDOMEN AND PELVIS W/0 CONTRAS [CT] Stat Exams 11/13/23 23:59 Completed - Procedures and Test Procedures and Tests throughout Hospitalization: Therapy Orders & Screens 11/14/23 02:46 Smoking Cessation Education ONCE Comment: Diagnosis: anemia Smoking Status: Current every day smoker How long have you smoked: 30 Have you smoked in the past 12 months: Yes Do you dip or chew tobacco: No Discharge Exam General Appearance: no apparent distress, alert Neurologic Exam: alert, oriented x 3, cooperative, normal mood/affect, nml cerebellar function, sensation nml, No motor deficits Eye Exam: PERRL, EOMI, eyes nml inspection Ears, Nose, Throat Exam: normal ENT inspection, pharynx normal, moist mucous membranes Neck Exam: normal inspection, non-tender, supple, full range of motion Respiratory Exam: normal breath sounds, lungs clear, No respiratory distress Cardiovascular Exam: regular rate/rhythm, normal heart sounds Gastrointestinal/Abdomen Exam: soft, No tenderness, No mass Male Genitalia Exam: deferred Rectal Exam: deferred Back Exam: normal inspection, normal range of motion, No CVA tenderness, No vertebral tenderness Extremity Exam: normal inspection, normal range of motion Skin Exam: normal color, warm, dry, rash (Left lower chin circular rash, dry skin on face and by corners of mouth) Final Diagnosis/Problem List - Final Discharge Diagnosis/Problem (1) Anemia Current Visit: Yes Status: Acute Assessment & Plan: - Hgb stable at 8 after blood given last night - Pt has chronic iron deficiency anemia- continue iron replacement - F/u with PCP and GI as scheduled. Code(s): D64.9 - ANEMIA, UNSPECIFIED (2) Ulcerative colitis Current Visit: Yes Status: Chronic Assessment & Plan: - no active flare. - F/U with GI OP Code(s): K51.90 - ULCERATIVE COLITIS, UNSPECIFIED, WITHOUT COMPLICATIONS (3) Ringworm Current Visit: Yes Status: Acute Assessment & Plan: - Clotrimazole apply BID - wash hands after touching Code(s): B35.9 - DERMATOPHYTOSIS, UNSPECIFIED (4) Dry skin Current Visit: Yes Status: Acute Assessment & Plan: - aquaphor BID Code(s): L85.3 - XEROSIS CUTIS - Discharge Discharge Date: 11/14/23 Disposition: Home, Self-Care Condition: Stable Prescriptions: Continue Ferrous Bis-Glycinate Chelate [Iron Bisglycinate] 2 tab PO DAILY Additional Instructions: May buy aquaphor OTC for dry skin if needed, apply twice daily. Use Clotrimazole twice daily for up to 4 weeks. It can take that long to clear up. Follow up with: MICAELA CORONADO [ACTIVE STAFF] - VAN MINOR FNP [NON-STAFF PHDilan W/O PRIVILEGES] - 12/12/23 2:00 pm ([facility] [address] [place] [address]. PHONE: [phone]) DOCTOR,NO FAMILY [Primary Care Provider] -
[2023-11-14] MEDS ORDERED: LOTRIMIN CREAM 30 GM TP SCH (12:00)
[2023-11-14] MEDS ORDERED: AQUAPHOR OINTMENT 50 GM TP SCH (12:00)
[2023-11-14] MEDS ORDERED: Bactroban OINTMENT TP SCH (12:00)
== END 2023-11-14 11:50 | disposition home or self-care (01) ==
LOC: ED 23:06 → MED SURG 11-14 01:48
PROVIDERS: ADMIT Internal Medicine; ATTEND Internal Medicine
DX: D64.9 Anemia, unspecified (principal); K51.90 Ulcerative colitis, unspecified, without complications; B35.9 Dermatophytosis, unspecified; L85.3 Xerosis cutis; K62.5 Hemorrhage of anus and rectum; F17.200 Nicotine dependence, unspecified, uncomplicated; Z79.899 Other long term (current) drug therapy; Z20.828 Contact with and (suspected) exposure to other viral communicable diseases; Z59.87 Material hardship due to limited financial resources, not elsewhere classified; Z59.41 Food insecurity; Z59.82 Transportation insecurity
CPT/HCPCS: 0241U; 36415; 74176; 80053; 80307; 81001; 82150; 82607; 82728; 82746; 83540; 83550; 83690; 85025; 85027; 85610; 85730; 86850; 86900; 86901; 86922; P9016; 99285; G0378; G0379; Q3014; A9270-GY

== ENCOUNTER 2023-11-20 12:07 | Emergency (ER) | payer OTHER ==
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
[2023-11-20] MEDS ORDERED: PERCOCET TABLET 5/325MG PO STA (12:58)
[2023-11-20] MEDS ORDERED: Norflex 60 MG/2 ML IM ONE (12:58)
[2023-11-20] MEDS ORDERED: solu-MEDROL 125 MG, Sterile H2O 10 ml 2 ML IM ONE ×2 (12:58)
[2023-11-20] MEDS ORDERED: Sterile H2O 10 ml IJ ONE (13:05)
[2023-11-20] MEDS ORDERED: Norflex 60 MG/2 ML ONE (13:06)
[2023-11-20] MEDS ORDERED: solu-MEDROL ONE (13:06)
[2023-11-20] MEDS ORDERED: PERCOCET TABLET 5/325MG ONE (13:06)
--- NOTE | 2023-11-20 13:32 | XRAY ---
Indication: Pain following fall. Comparison: None 3 view lumbar spine demonstrates 5 lumbar segments in normal alignment with osteopenia and mild/moderate L3-S1 degenerative changes greatest at L5-S1. No other bony, articular, or soft tissue abnormalities.
--- NOTE | 2023-11-20 13:32 | XRAY ---
Indication: Pain following fall. Comparison: None Single AP pelvis demonstrates osteopenia and mild low lumbar degenerative changes. No other bony, articular, or soft tissue abnormalities.
== END 2023-11-20 14:14 | disposition home or self-care (01) ==
LOC: ED 12:07
DX: M54.50 Low back pain, unspecified (principal); Z79.52 Long term (current) use of systemic steroids; Z79.899 Other long term (current) drug therapy; Z28.310 Unvaccinated for COVID-19; Z72.0 Tobacco use
CPT/HCPCS: 72100; 72170; 96372; 99284; J2360; J2930; A9270-GY

== ENCOUNTER 2023-12-06 12:51 | Observation (INO) | payer OTHER ==
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
[2023-12-06] MEDS: Sodium Chloride 0.9% 1000 ML 1,000 ML IV SCH (13:20)
[2023-12-06 13:34] LABS: Absolute Neutrophil Ct (ANC) 6.09 x10^3/uL (1.4-6.9); BASOPHIL % 0.7 % (0.0-0.4); Basophil (Absolute #) 0.06 x10^3/uL (0-0.4); Eosinophil (Absolute #) 0.17 x10^3/uL (0-0.5); Hematocrit 16.4 % (42-50); IMMATURE GRAN # 0.03 x10^3u/L (0.00-0.03); IMMATURE GRAN % 0.4 % (0.00-0.4); Lymphocyte (Absolute #) 1.38 x10^3/uL (1.0-4.6); Lymphocytes % 16.2 % (24.0-44.0); Mean Cell Volume 75.9 fL (78-100); Mean Corpuscular Hemoglobin 22.2 pg (26-32); Mean Corpuscular Hgb Concent. 29.3 g/dL (32-36); Mean Platelet Volume 9.7 fL (7.5-11.0); Monocytes % 9.4 % (0.0-12.0); Neutrophil % 71.3 % (36.0-66.0); Platelet Count 316 x10^3/uL (150-450); Red Blood Count 2.16 x10^6/uL (4.1-5.6); Red Cell Distribution Width 20.1 % (11.5-14.0); White Blood Count 8.5 x10^3/uL (4.0-10.5)
[2023-12-06 13:38] LABS: Hemoglobin 4.8 g/dL (12.5-18.0)
[2023-12-06 13:39] LABS: ALBUMIN 3.1 g/dL (3.5-5.0); ANION GAP 7.4 MEQ/L (5-15); BILIRUBIN,TOTAL 0.3 mg/dL (0.2-1.3); Calcium 8.3 mg/dL (8.4-10.2); Creatinine 1 0.94 mg/dL (0.66-1.25); EST GLOMERULAR FILTRATION RATE 99.4 ML/MIN; Potassium 3.8 mmol/L (3.5-5.1); Total Protein 5.4 g/dL (6.3-8.2)
[2023-12-06 14:08] LABS: PROTIME 10.9 SECONDS (9.4-12.5)
[2023-12-06] MEDS ORDERED: Zofran 4 MG/2 ML VIAL ONE (14:10)
[2023-12-06] MEDS ORDERED: MORPHINE SULFATE 2 MG INJ ONE (14:10)
[2023-12-06] MEDS ORDERED: PROTONIX 40 MG IV IV ONE (14:10)
[2023-12-06] MEDS: Zofran 4 MG/2 ML VIAL IV ONE (14:13)
[2023-12-06] MEDS: MORPHINE SULFATE 2 MG INJ IV ONE (14:14)
[2023-12-06] MEDS: PROTONIX 40 MG IV IV ONE (14:14)
[2023-12-06 14:29] LABS: ABO TYPING A; Antibody Screen NEGATIVE (NEGATIVE); RH TYPING NEGATIVE
[2023-12-06 14:33] LABS: CROSS MATCH (PRBC) COMPATIBLE (COMPATIBLE)
[2023-12-06] MEDS ORDERED: TYLENOL 325 MG PO PRN (14:44)
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
[2023-12-06] MEDS ORDERED: Zofran 4 MG/2 ML VIAL IV PRN (15:27)
[2023-12-06] MEDS: PROTONIX 40 MG IV IV SCH (16:46)
--- NOTE | 2023-12-06 16:58 | XRAY ---
Indication: Syncope 3 days ago. Multiple contiguous axial images obtained through the head without contrast. Comparison: None Normal appearing brain parenchyma, ventricles, and bony calvarium. Visualized paranasal sinuses and mastoid air cells are clear. Impression: Normal CT head without contrast exam.
[2023-12-06] MEDS: Nicoderm CQ 21 MG TOP SCH (17:25)
[2023-12-07 05:59] LABS: Absolute Neutrophil Ct (ANC) 4.66 x10^3/uL (1.4-6.9); BASOPHIL % 0.6 % (0.0-0.4); Basophil (Absolute #) 0.04 x10^3/uL (0-0.4); Eosinophil % 2.6 % (0.00-5.0); Eosinophil (Absolute #) 0.18 x10^3/uL (0-0.5); Hematocrit 20.9 % (42-50); IMMATURE GRAN # 0.03 x10^3u/L (0.00-0.03); IMMATURE GRAN % 0.4 % (0.00-0.4); Lymphocytes % 15.9 % (24.0-44.0); Mean Cell Volume 78.3 fL (78-100); Mean Corpuscular Hgb Concent. 30.6 g/dL (32-36); Mean Platelet Volume 9.2 fL (7.5-11.0); Monocyte (Absolute #) 0.93 x10^3/uL (0.0-1.3); Monocytes % 13.4 % (0.0-12.0); Neutrophil % 67.1 % (36.0-66.0); Platelet Count 270 x10^3/uL (150-450); Red Blood Count 2.67 x10^6/uL (4.1-5.6); Red Cell Distribution Width 18.9 % (11.5-14.0); White Blood Count 6.9 x10^3/uL (4.0-10.5)
[2023-12-07 06:05] LABS: Hemoglobin 6.4 g/dL (12.5-18.0)
[2023-12-07 06:15] LABS: ALBUMIN 2.8 g/dL (3.5-5.0); BILIRUBIN,TOTAL 0.7 mg/dL (0.2-1.3); Creatinine 1 0.84 mg/dL (0.66-1.25); EST GLOMERULAR FILTRATION RATE 106.9 ML/MIN
[2023-12-07] MEDS: Sodium Chloride 0.9% 1000 ML 1,000 ML IV SCH (08:14)
[2023-12-07] MEDS: PROTONIX 40 MG IV IV SCH (08:14)
[2023-12-07] MEDS ORDERED: NORCO 5/325 MG PO PRN (08:20)
--- NOTE | 2023-12-07 09:53 | PCM.DS ---
Discharge Summary Date of Admission: 12/06/23 14:34 Date of Discharge: 12/07/23 Admitting Physician: DENNYS MORENO MD Consults: Consults on Case 12/06/23 15:53 Case Management SDOH DC Needs Assessment ROUTINE Primary Care Provider: REYES FLORES <ERIKA ESPINOSA - Last Filed: 12/07/23 13:43> Date of Admission: 12/06/23 14:34 Admitting Physician: DENNYS MORENO MD Consults: Consults on Case 12/06/23 15:53 Case Management SDOH DC Needs Assessment ROUTINE Primary Care Provider: REYES FLORES <DENNYS MORENO - Last Filed: 12/08/23 00:25> Allergies <ERIKA ESPINOSA - Last Filed: 12/07/23 13:43> <DENNYS MORENO - Last Filed: 12/08/23 00:25> Allergies diphenhydramine [From Benadryl] Allergy (Severe, Verified 12/06/23 12:57) seizure Hospital Summary - Hospital Course Hospital Course: is a 48 year old male with a pmhx of elipepsy, GERD, and ulcerative colitis who presented to ED 12/06/23 under the advisement of his PCP Dr. Fay Flores due to low Hgb at 4.8. Patient reports that he has become basically transfusion dependent over the past several months with his last transfusion on 11/13/23. He states that between and he had an EGD/Colonoscopy which was unremarkable. He has been working with his new PCP with referrals to hematology and GI for further evaluation of his anemia. He endorses that he consistently is short of breath, dizzy, and weak but has noticed an increase of the past several days. Patient did pass out and hit his head. CT head negative. He denies dark stools but does have minimal bright red blood on toilet paper. Denies fever,cough, cp, abdominal pain, GALINDO, dizziness, N/V/D. Denies easy bruising, active bleeding, or hematuria. In ED, vitals unremarkable. CT abd/pelvis from 11/13/23 reviewed showing No acute abdomino pelvic abnormality with limitations of non-contrast CT study. Hepatic steatosis.A 4 mm right lower lobe calcified nodule.Moderate degenerative changes with retrolisthesis at L4-L5 and L5-S1. Lab findings remarkable for microcytic, hypochromic anemia with Hgb at 4.8. Patient received 3 units LPRBCs with noted improvement to Hgb. Patient advised follow up with PCP Saturday for recheck and to follow up with GI and Hematology appts as scheduled by his PCP. Discharge Note New Diagnosis: Anemia New Medications: none Follow Up: PCP/GI/ Hematology Latest Assessment & Plan (1) Microcytic hypochromic anemia Current Visit: Yes Status: Acute Assessment & Plan: -Hgb at 4.8, will transfuse 2 units LPRBC with 1 unit additional on hold -CBC 1 hour post transfusion -Patient has been set up with GI as well as Heme/onc as OP -H&H q6H, will transfuse if hgb <7 -Occult stools pending -PPI Code(s): D50.9 - IRON DEFICIENCY ANEMIA, UNSPECIFIED (2) Ulcerative colitis Current Visit: Yes Status: Acute Assessment & Plan: -No active flare, does not take home medications -PCP has set him up with GI for further evaluation Code(s): K51.90 - ULCERATIVE COLITIS, UNSPECIFIED, WITHOUT COMPLICATIONS (3) Nicotine dependence Current Visit: No Status: Acute Assessment & Plan: -Nicotine patch -Advised Cessation I spent 35 minutes [id number] with the patient on the day of discharge performing discharge exam, discussing hospital stay and discharge instructions with patient and caregivers, preparation of discharge records, prescriptions & referral forms and addressing any questions/concerns the patient had as documented above. - Vitals & Intake/Output Vital Signs: Vital Signs Temperature 98.3 F 12/07/23 04:00 Pulse Rate 70 12/07/23 08:00 Respiratory Rate 18 12/07/23 08:00 Blood Pressure 118/61 12/07/23 08:00 O2 Sat by Pulse Oximetry 98 12/07/23 08:00 Intake & Output: Intake & Output 12/04/23 12/05/23 12/06/23 12/07/23 11:59 11:59 11:59 11:59 Intake Total 862 Balance 862 Weight 67.4 kg - Lab Result Diagrams: 12/07/23 12:38 12/07/23 05:48 Lab Results-Last 24 Hrs: Lab Results-Last 24 Hours 12/06/23 12/06/23 12/06/23 Range/Units 13:12 13:12 13:12 WBC 8.5 (4.0-10.5) x10^3/uL RBC 2.16 L (4.1-5.6) x10^6/uL Hgb 4.8 L* (12.5-18.0) g/dL Hct 16.4 L (42-50) % MCV 75.9 L (78-100) fL MCH 22.2 L (26-32) pg MCHC 29.3 L (32-36) g/dL RDW 20.1 H (11.5-14.0) % Plt Count 316 (150-450) x10^3/uL MPV 9.7 (7.5-11.0) fL Gran % 71.3 H (36.0-66.0) % Immature Gran % (Auto) 0.4 (0.00-0.4) % Nucleat RBC Rel Count 0.0 (0.00-0.1) % Eos # (Auto) 0.17 (0-0.5) x10^3/uL Immature Gran # (Auto) 0.03 (0.00-0.03) x10^3u/L Absolute Lymphs (auto) 1.38 (1.0-4.6) x10^3/uL Absolute Monos (auto) 0.80 (0.0-1.3) x10^3/uL Absolute Nucleated RBC 0.00 (0.00-0.01) x10^3u/L Lymphocytes % 16.2 L (24.0-44.0) % Monocytes % 9.4 (0.0-12.0) % Eosinophils % 2.0 (0.00-5.0) % Basophils % 0.7 (0.0-0.4) % Absolute Granulocytes 6.09 (1.4-6.9) x10^3/uL Basophils # 0.06 (0-0.4) x10^3/uL PT 10.9 (9.4-12.5) SECONDS INR 1.00 (0.8-3.0) Sodium 135 L (137-145) mmol/L Potassium 3.8 (3.5-5.1) mmol/L Chloride 109 H (98-107) mmol/L Carbon Dioxide 22 (22-30) mmol/L Anion Gap 7.4 (5-15) MEQ/L BUN 12 (9-20) mg/dL Creatinine 0.94 (0.66-1.25) mg/dL Estimated GFR 99.4 ML/MIN Glucose 94 (74-106) mg/dL Calcium 8.3 L (8.4-10.2) mg/dL Total Bilirubin 0.30 (0.2-1.3) mg/dL AST 18 (17-59) U/L ALT 18 (0-50) U/L Alkaline Phosphatase 52 (38-126) U/L NT-Pro-B Natriuret Pep (<300) pg/mL Serum Total Protein 5.4 L (6.3-8.2) g/dL Albumin 3.1 L (3.5-5.0) g/dL ABO Group Rh Factor Antibody Screen (NEGATIVE) Crossmatch (COMPATIBLE) 12/06/23 12/06/23 12/06/23 Range/Units 13:30 Unknown Unknown WBC (4.0-10.5) x10^3/uL RBC (4.1-5.6) x10^6/uL Hgb (12.5-18.0) g/dL Hct (42-50) % MCV (78-100) fL MCH (26-32) pg MCHC (32-36) g/dL RDW (11.5-14.0) % Plt Count (150-450) x10^3/uL MPV (7.5-11.0) fL Gran % (36.0-66.0) % Immature Gran % (Auto) (0.00-0.4) % Nucleat RBC Rel Count (0.00-0.1) % Eos # (Auto) (0-0.5) x10^3/uL Immature Gran # (Auto) (0.00-0.03) x10^3u/L Absolute Lymphs (auto) (1.0-4.6) x10^3/uL Absolute Monos (auto) (0.0-1.3) x10^3/uL Absolute Nucleated RBC (0.00-0.01) x10^3u/L Lymphocytes % (24.0-44.0) % Monocytes % (0.0-12.0) % Eosinophils % (0.00-5.0) % Basophils % (0.0-0.4) % Absolute Granulocytes (1.4-6.9) x10^3/uL Basophils # (0-0.4) x10^3/uL PT (9.4-12.5) SECONDS INR (0.8-3.0) Sodium (137-145) mmol/L Potassium (3.5-5.1) mmol/L Chloride (98-107) mmol/L Carbon Dioxide (22-30) mmol/L Anion Gap (5-15) MEQ/L BUN (9-20) mg/dL Creatinine (0.66-1.25) mg/dL Estimated GFR ML/MIN Glucose (74-106) mg/dL Calcium (8.4-10.2) mg/dL Total Bilirubin (0.2-1.3) mg/dL AST (17-59) U/L ALT (0-50) U/L Alkaline Phosphatase (38-126) U/L NT-Pro-B Natriuret Pep (<300) pg/mL Serum Total Protein (6.3-8.2) g/dL Albumin (3.5-5.0) g/dL ABO Group A Rh Factor NEGATIVE Antibody Screen NEGATIVE (NEGATIVE) Crossmatch COMPATIBLE COMPATIBLE (COMPATIBLE) 12/06/23 12/07/23 12/07/23 Range/Units Unknown 05:48 05:48 WBC 6.9 (4.0-10.5) x10^3/uL RBC 2.67 L (4.1-5.6) x10^6/uL Hgb 6.4 L* D (12.5-18.0) g/dL Hct 20.9 L (42-50) % MCV 78.3 (78-100) fL MCH 24.0 L (26-32) pg MCHC 30.6 L (32-36) g/dL RDW 18.9 H (11.5-14.0) % Plt Count 270 (150-450) x10^3/uL MPV 9.2 (7.5-11.0) fL Gran % 67.1 H (36.0-66.0) % Immature Gran % (Auto) 0.4 (0.00-0.4) % Nucleat RBC Rel Count 0.0 (0.00-0.1) % Eos # (Auto) 0.18 (0-0.5) x10^3/uL Immature Gran # (Auto) 0.03 (0.00-0.03) x10^3u/L Absolute Lymphs (auto) 1.10 (1.0-4.6) x10^3/uL Absolute Monos (auto) 0.93 (0.0-1.3) x10^3/uL Absolute Nucleated RBC 0.00 (0.00-0.01) x10^3u/L Lymphocytes % 15.9 L (24.0-44.0) % Monocytes % 13.4 H (0.0-12.0) % Eosinophils % 2.6 (0.00-5.0) % Basophils % 0.6 (0.0-0.4) % Absolute Granulocytes 4.66 (1.4-6.9) x10^3/uL Basophils # 0.04 (0-0.4) x10^3/uL PT (9.4-12.5) SECONDS INR (0.8-3.0) Sodium 134 L (137-145) mmol/L Potassium 4.0 (3.5-5.1) mmol/L Chloride 110 H (98-107) mmol/L Carbon Dioxide 24 (22-30) mmol/L Anion Gap 5.0 (5-15) MEQ/L BUN 9 (9-20) mg/dL Creatinine 0.84 (0.66-1.25) mg/dL Estimated GFR 106.9 ML/MIN Glucose 90 (74-106) mg/dL Calcium 8.0 L (8.4-10.2) mg/dL Total Bilirubin 0.70 (0.2-1.3) mg/dL AST 16 L (17-59) U/L ALT 17 (0-50) U/L Alkaline Phosphatase 43 (38-126) U/L NT-Pro-B Natriuret Pep 500 (<300) pg/mL Serum Total Protein 5.0 L (6.3-8.2) g/dL Albumin 2.8 L (3.5-5.0) g/dL ABO Group Rh Factor Antibody Screen (NEGATIVE) Crossmatch COMPATIBLE (COMPATIBLE) - Radiology Exams Ordered Rad Exams-Entire Visit: Radiology Procedures Category Date Time Status HEAD WITHOUT CONTRAST [CT] Urgent Exams 12/06/23 16:23 Completed - Procedures and Test Procedures and Tests throughout Hospitalization: Therapy Orders & Screens 12/06/23 15:53 OT Screen per Nursing Assess ONCE Comment: Protocol Order Physician Instructions: Greater than 3 points order OT Admission Screening Reason For Exam: Triggered on Admission Diagnosis: Symptomatic anemia Open Wound/Cellutlitis/Pressure Ulcers: No Acute Fx/ORIF/Change in wt bearing status: Yes Severe MUSCULOSKELETAL pain: No ADL Dysfunction: No Acute CVA w/Hemiparesis/Hemiplegia: No Decreased Functional Mobility/Strength: Yes Sprain/Strain: No Acute Post-op Mobility Dysfunction: No Total Points: 6 PT Screen per Nursing Assess ONCE Comment: Protocol Order Physician Instructions: Greater than 3 points order PT Admission Screenin Reason For Exam: Triggered on Admission Diagnosis: Symptomatic anemia Open Wound/Cellutlitis/Pressure Ulcers: No Acute Fx/ORIF/Change in wt bearing status: Yes Severe MUSCULOSKELETAL pain: No ADL Dysfunction: No Acute CVA w/Hemiparesis/Hemiplegia: No Decreased Functional Mobility/Strength: Yes Sprain/Strain: No Acute Post-op Mobility Dysfunction: No Total Points: 6 Smoking Cessation Education ONCE Comment: Diagnosis: Symptomatic anemia Smoking Status: Current every day smoker How long have you smoked: 30 Have you smoked in the past 12 months: Yes Approximately how many cigarettes per day: 1/2 PPD Do you dip or chew tobacco: No <ERIKA ESPINOSA - Last Filed: 12/07/23 13:43> - Vitals & Intake/Output Vital Signs: Vital Signs Temperature 98.1 F 12/07/23 16:00 Pulse Rate 77 12/07/23 16:00 Respiratory Rate 18 12/07/23 16:00 Blood Pressure 111/66 12/07/23 16:00 O2 Sat by Pulse Oximetry 99 12/07/23 16:00 Intake & Output: Intake & Output 12/05/23 12/06/23 12/07/23 12/08/23 11:59 11:59 11:59 11:59 Intake Total 862 480 Output Total 800 Balance 862 -320 Weight 67.4 kg - Lab Result Diagrams: 12/07/23 17:10 12/07/23 05:48 Lab Results-Last 24 Hrs: Lab Results-Last 24 Hours 12/06/23 12/07/23 12/07/23 Range/Units Unknown 05:48 05:48 WBC 6.9 (4.0-10.5) x10^3/uL RBC 2.67 L (4.1-5.6) x10^6/uL Hgb 6.4 L* D (12.5-18.0) g/dL Hct 20.9 L (42-50) % MCV 78.3 (78-100) fL MCH 24.0 L (26-32) pg MCHC 30.6 L (32-36) g/dL RDW 18.9 H (11.5-14.0) % Plt Count 270 (150-450) x10^3/uL MPV 9.2 (7.5-11.0) fL Gran % 67.1 H (36.0-66.0) % Immature Gran % (Auto) 0.4 (0.00-0.4) % Nucleat RBC Rel Count 0.0 (0.00-0.1) % Eos # (Auto) 0.18 (0-0.5) x10^3/uL Immature Gran # (Auto) 0.03 (0.00-0.03) x10^3u/L Absolute Lymphs (auto) 1.10 (1.0-4.6) x10^3/uL Absolute Monos (auto) 0.93 (0.0-1.3) x10^3/uL Absolute Nucleated RBC 0.00 (0.00-0.01) x10^3u/L Lymphocytes % 15.9 L (24.0-44.0) % Monocytes % 13.4 H (0.0-12.0) % Eosinophils % 2.6 (0.00-5.0) % Basophils % 0.6 (0.0-0.4) % Absolute Granulocytes 4.66 (1.4-6.9) x10^3/uL Basophils # 0.04 (0-0.4) x10^3/uL Sodium 134 L (137-145) mmol/L Potassium 4.0 (3.5-5.1) mmol/L Chloride 110 H (98-107) mmol/L Carbon Dioxide 24 (22-30) mmol/L Anion Gap 5.0 (5-15) MEQ/L BUN 9 (9-20) mg/dL Creatinine 0.84 (0.66-1.25) mg/dL Estimated GFR 106.9 ML/MIN Glucose 90 (74-106) mg/dL Calcium 8.0 L (8.4-10.2) mg/dL Total Bilirubin 0.70 (0.2-1.3) mg/dL AST 16 L (17-59) U/L ALT 17 (0-50) U/L Alkaline Phosphatase 43 (38-126) U/L NT-Pro-B Natriuret Pep 500 (<300) pg/mL Serum Total Protein 5.0 L (6.3-8.2) g/dL Albumin 2.8 L (3.5-5.0) g/dL Crossmatch COMPATIBLE (COMPATIBLE) 12/07/23 12/07/23 Range/Units 12:38 17:10 WBC (4.0-10.5) x10^3/uL RBC (4.1-5.6) x10^6/uL Hgb 7.5 L 7.8 L (12.5-18.0) g/dL Hct 24.1 L 25.3 L (42-50) % MCV (78-100) fL MCH (26-32) pg MCHC (32-36) g/dL RDW (11.5-14.0) % Plt Count (150-450) x10^3/uL MPV (7.5-11.0) fL Gran % (36.0-66.0) % Immature Gran % (Auto) (0.00-0.4) % Nucleat RBC Rel Count (0.00-0.1) % Eos # (Auto) (0-0.5) x10^3/uL Immature Gran # (Auto) (0.00-0.03) x10^3u/L Absolute Lymphs (auto) (1.0-4.6) x10^3/uL Absolute Monos (auto) (0.0-1.3) x10^3/uL Absolute Nucleated RBC (0.00-0.01) x10^3u/L Lymphocytes % (24.0-44.0) % Monocytes % (0.0-12.0) % Eosinophils % (0.00-5.0) % Basophils % (0.0-0.4) % Absolute Granulocytes (1.4-6.9) x10^3/uL Basophils # (0-0.4) x10^3/uL Sodium (137-145) mmol/L Potassium (3.5-5.1) mmol/L Chloride (98-107) mmol/L Carbon Dioxide (22-30) mmol/L Anion Gap (5-15) MEQ/L BUN (9-20) mg/dL Creatinine (0.66-1.25) mg/dL Estimated GFR ML/MIN Glucose (74-106) mg/dL Calcium (8.4-10.2) mg/dL Total Bilirubin (0.2-1.3) mg/dL AST (17-59) U/L ALT (0-50) U/L Alkaline Phosphatase (38-126) U/L NT-Pro-B Natriuret Pep (<300) pg/mL Serum Total Protein (6.3-8.2) g/dL Albumin (3.5-5.0) g/dL Crossmatch (COMPATIBLE) - Radiology Exams Ordered Rad Exams-Entire Visit: Radiology Procedures Category Date Time Status HEAD WITHOUT CONTRAST [CT] Urgent Exams 12/06/23 16:23 Completed - Procedures and Test Procedures and Tests throughout Hospitalization: Therapy Orders & Screens 12/06/23 15:53 OT Screen per Nursing Assess ONCE Comment: Protocol Order Physician Instructions: Greater than 3 points order OT Admission Screening Reason For Exam: Triggered on Admission Diagnosis: Symptomatic anemia Open Wound/Cellutlitis/Pressure Ulcers: No Acute Fx/ORIF/Change in wt bearing status: Yes Severe MUSCULOSKELETAL pain: No ADL Dysfunction: No Acute CVA w/Hemiparesis/Hemiplegia: No Decreased Functional Mobility/Strength: Yes Sprain/Strain: No Acute Post-op Mobility Dysfunction: No Total Points: 6 PT Screen per Nursing Assess ONCE Comment: Protocol Order Physician Instructions: Greater than 3 points order PT Admission Screenin Reason For Exam: Triggered on Admission Diagnosis: Symptomatic anemia Open Wound/Cellutlitis/Pressure Ulcers: No Acute Fx/ORIF/Change in wt bearing status: Yes Severe MUSCULOSKELETAL pain: No ADL Dysfunction: No Acute CVA w/Hemiparesis/Hemiplegia: No Decreased Functional Mobility/Strength: Yes Sprain/Strain: No Acute Post-op Mobility Dysfunction: No Total Points: 6 Smoking Cessation Education ONCE Comment: Diagnosis: Symptomatic anemia Smoking Status: Current every day smoker How long have you smoked: 30 Have you smoked in the past 12 months: Yes Approximately how many cigarettes per day: 1/2 PPD Do you dip or chew tobacco: No <DENNYS MORENO - Last Filed: 12/08/23 00:25> Discharge Exam General Appearance: no apparent distress Neurologic Exam: alert, oriented x 3, cooperative Eye Exam: PERRL Ears, Nose, Throat Exam: normal ENT inspection Neck Exam: normal inspection Respiratory Exam: normal breath sounds, lungs clear Cardiovascular Exam: regular rate/rhythm, normal heart sounds Gastrointestinal/Abdomen Exam: soft, normal bowel sounds Male Genitalia Exam: deferred Rectal Exam: deferred Back Exam: normal inspection Extremity Exam: normal inspection Skin Exam: normal color <ERIKA ESPINOSA - Last Filed: 12/07/23 13:43> Final Diagnosis/Problem List - Final Discharge Diagnosis/Problem (1) Microcytic hypochromic anemia Status: Acute Code(s): D50.9 - IRON DEFICIENCY ANEMIA, UNSPECIFIED (2) Ulcerative colitis Status: Acute Code(s): K51.90 - ULCERATIVE COLITIS, UNSPECIFIED, WITHOUT CO MPLICATIONS (3) Nicotine dependence Status: Acute Code(s): F17.200 - NICOTINE DEPENDENCE, UNSPECIFIED, UNCOMPLICATED <ERIKA ESPINOSA - Last Filed: 12/07/23 13:43> <ERIKA ESPINOSA - Last Filed: 12/07/23 13:43> <DENNYS MORENO - Last Filed: 12/08/23 00:25> - Discharge Disposition: Home, Self-Care Condition: Stable Prescriptions: New PANTOPRAZOLE 40 mg Tablet [Protonix 40MG Tablet] 40 mg PO QAM 30 Days #30 tab Instructions: Pantoprazole Additional Instructions: Will need to Follow up Saturday with PCP with labs to recheck hgb Follow up with: REYES FLORES [Primary Care Provider] - (Call Saturday for appt and follow up CBC) ADRIANA Encounter - ADRIANA Encounter Attestation ADRIANA Encounter Attestation: "CONSTANTINO Bravo GENE on 12/07/2023 andhavediscussed pertinent aspects of their care with Erika Leon agree with the history, physical exam (any modifications based on my personal exam will be noted below), assessment, and plan as outlined in original note. Please see immediately below for my summary of findings and additional assessment and plan along with any meaningful corrections/explanations to the Subjective/O bjective portions of the ADRIANA note will be noted." My portion of the encounter took place via telemedicine. <DENNYS MORENO - Last Filed: 12/08/23 00:25>
[2023-12-07 11:27] VITALS: O2SAT 99
[2023-12-07 12:42] LABS: Hematocrit 24.1 % (42-50); Hemoglobin 7.5 g/dL (12.5-18.0)
[2023-12-07 16:40] VITALS: BP 111/66; PULSE 77; RESP 18; TEMP 98.1
[2023-12-07 17:23] LABS: Hematocrit 25.3 % (42-50); Hemoglobin 7.8 g/dL (12.5-18.0)
== END 2023-12-07 17:57 | disposition home or self-care (01) ==
LOC: ED 12:51 → MED SURG 14:34
PROVIDERS: ADMIT Internal Medicine; ATTEND Internal Medicine
DX: D50.9 Iron deficiency anemia, unspecified (principal); K51.90 Ulcerative colitis, unspecified, without complications; F17.210 Nicotine dependence, cigarettes, uncomplicated; W19.XXXA Unspecified fall, initial encounter; Z20.828 Contact with and (suspected) exposure to other viral communicable diseases; Z59.811 Housing instability, housed, with risk of homelessness; Z59.10 Inadequate housing, unspecified; Z59.87 Material hardship due to limited financial resources, not elsewhere classified; Z59.41 Food insecurity; Z59.82 Transportation insecurity
CPT/HCPCS: 36000; 36415; 36430; 70450; 80053; 83880; 85014; 85018; 85025; 85610; 86850; 86900; 86901; 86922; 93268; 96374; 96375; 99285; G0378; P9016; Q3014; J2270; J2405; A9270-GY

== ENCOUNTER 2023-12-11 12:14 | Observation (INO) | payer OTHER ==
[2023-12-11] MEDS ORDERED: Sodium Chloride 0.9% 1000 ML 1,000 ML ONE ×2 (12:42→14:21)
[2023-12-11] MEDS: Sodium Chloride 0.9% 1000 ML 1,000 ML IV STA (12:43)
[2023-12-11 12:51] LABS: Absolute Neutrophil Ct (ANC) 6.11 x10^3/uL (1.4-6.9); BASOPHIL % 0.7 % (0.0-0.4); Basophil (Absolute #) 0.06 x10^3/uL (0-0.4); Eosinophil % 1.5 % (0.00-5.0); Eosinophil (Absolute #) 0.12 x10^3/uL (0-0.5); IMMATURE GRAN # 0.03 x10^3u/L (0.00-0.03); IMMATURE GRAN % 0.4 % (0.00-0.4); Lymphocyte (Absolute #) 1.12 x10^3/uL (1.0-4.6); Lymphocytes % 13.9 % (24.0-44.0); Mean Cell Volume 81.3 fL (78-100); Mean Corpuscular Hemoglobin 24.7 pg (26-32); Mean Corpuscular Hgb Concent. 30.4 g/dL (32-36); Mean Platelet Volume 9.8 fL (7.5-11.0); Monocyte (Absolute #) 0.62 x10^3/uL (0.0-1.3); Monocytes % 7.7 % (0.0-12.0); Neutrophil % 75.8 % (36.0-66.0); Platelet Count 352 x10^3/uL (150-450); Red Blood Count 2.83 x10^6/uL (4.1-5.6); Red Cell Distribution Width 21.1 % (11.5-14.0); White Blood Count 8.1 x10^3/uL (4.0-10.5)
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
[2023-12-11 13:23] LABS: ALBUMIN 3.2 g/dL (3.5-5.0); ANION GAP 6.9 MEQ/L (5-15); BILIRUBIN,TOTAL 0.5 mg/dL (0.2-1.3); Calcium 8.1 mg/dL (8.4-10.2); Creatinine 1 0.59 mg/dL (0.66-1.25); EST GLOMERULAR FILTRATION RATE 118.9 ML/MIN; Potassium 3.8 mmol/L (3.5-5.1); Total Protein 5.5 g/dL (6.3-8.2)
[2023-12-11 14:10] LABS: ABO TYPING A; Antibody Screen NEGATIVE (NEGATIVE); RH TYPING NEGATIVE
[2023-12-11 14:13] LABS: CROSS MATCH (PRBC) COMPATIBLE (COMPATIBLE)
[2023-12-11] MEDS: Sodium Chloride 0.9% 1000 ML 1,000 ML IV SCH (14:37)
[2023-12-11 15:56] LABS: INR 1.04 (0.8-3.0); PROTIME 11.3 SECONDS (9.4-12.5)
[2023-12-11 23:06] LABS: Hematocrit 25.1 % (42-50); Hemoglobin 7.7 g/dL (12.5-18.0)
[2023-12-11] MEDS ORDERED: Zofran 4 MG/2 ML VIAL IV PRN (23:42)
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
[2023-12-12] MEDS: Nicoderm CQ 21 MG TOP SCH ×2 (00:38→13:16)
[2023-12-12] MEDS: Sodium Chloride 0.9% 1000 ML 1,000 ML IV SCH (02:32)
[2023-12-12 05:30] LABS: Hematocrit 23.9 % (42-50); Hemoglobin 7.2 g/dL (12.5-18.0); Mean Corpuscular Hgb Concent. 30.1 g/dL (32-36); Mean Platelet Volume 10.1 fL (7.5-11.0); Platelet Count 310 x10^3/uL (150-450); Red Blood Count 2.88 x10^6/uL (4.1-5.6); Red Cell Distribution Width 20.2 % (11.5-14.0); White Blood Count 8.7 x10^3/uL (4.0-10.5)
[2023-12-12] MEDS: Protonix 40MG Tablet PO SCH (09:10)
[2023-12-12] MEDS: Norflex 100 MG Tablet PO SCH (09:10)
[2023-12-12] MEDS: FEOSOL 325 MG PO SCH (09:10)
[2023-12-12 09:16] LABS: ALBUMIN 2.7 g/dL (3.5-5.0); ANION GAP 5.1 MEQ/L (5-15); BILIRUBIN,TOTAL 0.3 mg/dL (0.2-1.3); Calcium 8.2 mg/dL (8.4-10.2); Creatinine 1 0.8 mg/dL (0.66-1.25); EST GLOMERULAR FILTRATION RATE 108.5 ML/MIN; Potassium 3.9 mmol/L (3.5-5.1); Total Protein 4.9 g/dL (6.3-8.2)
[2023-12-12 10:45] VITALS: RESP 18
[2023-12-12] MEDS: DELTASONE 20 MG PO SCH (11:29)
[2023-12-12] MEDS: TYLENOL 325 MG PO PRN (12:11)
[2023-12-12 13:38] LABS: Hematocrit 26.9 % (42-50); Hemoglobin 8.3 g/dL (12.5-18.0)
--- NOTE | 2023-12-12 14:52 | PCM.DS ---
Discharge Summary Date of Admission: 12/11/23 21:28 Date of Discharge: 12/12/23 Admitting Physician: JENELLE RODRIGUEZ MD Primary Care Provider: REYES BURNHAM Allergies Allergies diphenhydramine [From Benadryl] Allergy (Severe, Verified 12/06/23 12:57) seizure Hospital Summary - Hospital Course Hospital Course: is a 48 year old male with a known history of ulcerative colitis and recurrent hematochezia. He presented 12/11/23 with increased bright red stool per rectum every time he has a bowel movement for several days with fatigue. Patient denies any abdominal pain nausea or vomiting. The blood is bright red without melena. Patient reports feeling dizzy and lightheaded with standing without any chest pain palpitations or shortness of breath. Patient reports having similar symptoms multiple times in the past with GI bleed. He has recently been hospitalized and required transfusion. He continues to have bright red stools with rectal bleeding. After 2nd unit of blood HGB is 8.3. Case management found out that pt cancelled his OP f/u appointment with GI that was scheduled for today. Pt cancelled this appointment himself on 12/10 @ 1500 per GI staff. He is now under arrest and there is concern about him going back to [facility] with continued bleeding. Transfer to a higher level of care for GI evaluation is warranted. Discussed with Dr. Dinero and will attempt to tx to a higher level care for continue GI bleeding with hx of ulcerative colitis. - Vitals & Intake/Output Vital Signs: Vital Signs Temperature 98.1 F 12/12/23 14:00 Pulse Rate 74 12/12/23 14:00 Respiratory Rate 18 12/12/23 10:35 Blood Pressure 127/61 12/12/23 14:00 O2 Sat by Pulse Oximetry 99 12/12/23 10:35 Intake & Output: Intake & Output 12/10/23 12/11/23 12/12/23 12/13/23 11:59 11:59 11:59 11:59 Intake Total 200 860 Output Total 500 550 Balance -300 310 Weight 67.5 kg - Lab Result Diagrams: 12/12/23 16:30 12/12/23 05:09 Lab Results-Last 24 Hrs: Lab Results-Last 24 Hours 12/11/23 12/11/23 12/12/23 Range/Units 12:42 23:00 05:09 WBC 8.7 (4.0-10.5) x10^3/uL RBC 2.88 L (4.1-5.6) x10^6/uL Hgb 7.7 L 7.2 L (12.5-18.0) g/dL Hct 25.1 L 23.9 L (42-50) % MCV 83.0 (78-100) fL MCH 25.0 L (26-32) pg MCHC 30.1 L (32-36) g/dL RDW 20.2 H (11.5-14.0) % Plt Count 310 (150-450) x10^3/uL MPV 10.1 (7.5-11.0) fL PT 11.3 (9.4-12.5) SECONDS INR 1.04 (0.8-3.0) Sodium (137-145) mmol/L Potassium (3.5-5.1) mmol/L Chloride (98-107) mmol/L Carbon Dioxide (22-30) mmol/L Anion Gap (5-15) MEQ/L BUN (9-20) mg/dL Creatinine (0.66-1.25) mg/dL Estimated GFR ML/MIN Glucose (74-106) mg/dL Calcium (8.4-10.2) mg/dL Total Bilirubin (0.2-1.3) mg/dL AST (17-59) U/L ALT (0-50) U/L Alkaline Phosphatase (38-126) U/L Serum Total Protein (6.3-8.2) g/dL Albumin (3.5-5.0) g/dL 12/12/23 12/12/23 Range/Units 05:09 13:35 WBC (4.0-10.5) x10^3/uL RBC (4.1-5.6) x10^6/uL Hgb 8.3 L (12.5-18.0) g/dL Hct 26.9 L (42-50) % MCV (78-100) fL MCH (26-32) pg MCHC (32-36) g/dL RDW (11.5-14.0) % Plt Count (150-450) x10^3/uL MPV (7.5-11.0) fL PT (9.4-12.5) SECONDS INR (0.8-3.0) Sodium 136 L (137-145) mmol/L Potassium 3.9 (3.5-5.1) mmol/L Chloride 109 H (98-107) mmol/L Carbon Dioxide 25 (22-30) mmol/L Anion Gap 5.1 (5-15) MEQ/L BUN 13 (9-20) mg/dL Creatinine 0.80 (0.66-1.25) mg/dL Estimated GFR 108.5 ML/MIN Glucose 97 (74-106) mg/dL Calcium 8.2 L (8.4-10.2) mg/dL Total Bilirubin 0.30 (0.2-1.3) mg/dL AST 21 (17-59) U/L ALT 16 (0-50) U/L Alkaline Phosphatase 50 (38-126) U/L Serum Total Protein 4.9 L (6.3-8.2) g/dL Albumin 2.7 L (3.5-5.0) g/dL - Procedures and Test Procedures and Tests throughout Hospitalization: Therapy Orders & Screens 12/11/23 23:42 PT Eval & Treat (MD Order) ONCE Reason for Eval:: dizziness. Safety assessment Diagnosis: LOWER gi BLEED, SYMPTOMATIC ANEMIA Discharge Exam General Appearance: no apparent distress, alert Neurologic Exam: alert, oriented x 3, cooperative, normal mood/affect, nml cerebellar function, sensation nml, No motor deficits Eye Exam: PERRL, EOMI, eyes nml inspection Ears, Nose, Throat Exam: normal ENT inspection, pharynx normal, moist mucous membranes Neck Exam: normal inspection, non-tender, supple, full range of motion Respiratory Exam: normal breath sounds, lungs clear, No respiratory distress Cardiovascular Exam: regular rate/rhythm, normal heart sounds Gastrointestinal/Abdomen Exam: soft, tenderness (LLQ, RLQ), other (GI bleeding), No mass Male Genitalia Exam: deferred Rectal Exam: deferred Back Exam: normal inspection, normal range of motion, No CVA tenderness, No vertebral tenderness Extremity Exam: normal inspection, normal range of motion Skin Exam: normal color, warm, dry Final Diagnosis/Problem List - Final Discharge Diagnosis/Problem (1) Rectal bleeding Current Visit: No Status: Acute Assessment & Plan: -Monitor counts. -Received 2 unit transfusion of PRBC - Hgb 8.3 after 2nd unit - tx to higher level of care for further evaluation of rectal bleeding. Code(s): K62.5 - HEMORRHAGE OF ANUS AND RECTUM (2) Anemia Current Visit: No Status: Acute Assessment & Plan: -Recurrent acute blood loss anemia. - Will have patient ambulate with PT for safety assessment. Code(s): D64.9 - ANEMIA, UNSPECIFIED (3) Ulcerative colitis Current Visit: No Status: Acute Assessment & Plan: -Will benefit from GI referral if this can be arranged. - Pt cancelled GI OP f/u on 12/10 @ 1500 - Will need tx to higher level of care for further eval by GI IP Code(s): K51.90 - ULCERATIVE COLITIS, UNSPECIFIED, WITHOUT COMPLICATIONS (4) Lower GI bleed Current Visit: Yes Status: Acute Assessment & Plan: -As above, will follow counts after transfusion. - H&H Q6 Code(s): K92.2 - GASTROINTESTINAL HEMORRHAGE, UNSPECIFIED - Discharge Discharge Date: 12/12/23 Disposition: XFER OTHER Condition: Fair Prescriptions: Continue Orphenadrine Citrate 100 mg [Norflex 100 MG Tablet] 100 mg PO BID Ferrous Sulfate [Ferosul] 325 mg PO BID PANTOPRAZOLE 40 mg Tablet [Protonix 40MG Tablet] 40 mg PO DAILY Instructions: Gastrointestinal Bleeding (DC), Ulcerative Colitis (DC) Follow up with: NILA PERALES MD [NON-STAFF PHY W/O PRIVILEGES] - 12/24/23 10:45 am (Follow up with GI at [facility] [address] in [place])
[2023-12-12 16:34] VITALS: BP 109/57; PULSE 82; TEMP 96.8; O2SAT 97
[2023-12-12 16:35] LABS: Hematocrit 26.8 % (42-50); Hemoglobin 8.4 g/dL (12.5-18.0)
== END 2023-12-12 19:45 ==
LOC: EEVIPCON 12:14 → ED 12:14 → MED SURG 21:28
PROVIDERS: ADMIT Internal Medicine Nephrology; ATTEND Internal Medicine Nephrology
DX: K62.5 Hemorrhage of anus and rectum (principal); D64.9 Anemia, unspecified; K51.90 Ulcerative colitis, unspecified, without complications; F17.200 Nicotine dependence, unspecified, uncomplicated; Z79.899 Other long term (current) drug therapy; Z20.828 Contact with and (suspected) exposure to other viral communicable diseases; Z59.811 Housing instability, housed, with risk of homelessness; Z59.87 Material hardship due to limited financial resources, not elsewhere classified; Z59.41 Food insecurity; Z59.82 Transportation insecurity
CPT/HCPCS: 36415; 36430; 80053; 82947; 83690; 83735; 85014; 85018; 85025; 85027; 85610; 85730; 86850; 86900; 86901; 86922; 96360; 99285; P9016; Q3014; A9270-GY